=== PATIENT | female | born 1950 | race Caucasian/White ===

== ENCOUNTER 2016-08-05 07:48 | Emergency (ER) | payer MEDICARE ==
[~2016-08-05] VITALS: Ht 154.9 cm; Wt 63.5 kg
[~2016-08-05 07:48] MED LIST: ALBU2.5V13 NEB; ALEN70TA5 PO; CHOL500021 PO; CLON0.1T PO; DOCU-27 PO; LATA2.5D3 OP; LISI-338 PO; MECL25TA3 PO; NAPR500T3 PO; OMEP40CA5 PO; OXYC-323 PO; SIMV10TA3 PO; TRAM50TA PO; VERA240C2 PO
--- NOTE | 2016-08-05 07:54 | PHYS DOC ---
Past Medical History Past Medical History: COPD, Hypertension Past Surgical History: Hysterectomy, Tonsillectomy, Tubal ligation Alcohol Use: None Drug Use: None Adult General Chief Complaint Chief Complaint: ABDOMINAL PAIN HPI HPI Patient is a 66 year old female who presents with abdominal pain. She states this feels like her diverticulitis is flared up in the past. She states it hurts on the epigastric area and down the left side in his crampy in nature. It started around 2 AM this morning he woke her up. She had 1 loose stool with small amount of bright red blood in it. She denies any chest pain shortness of breath fevers chills nausea or vomiting. Review of Systems Review of Systems Constitutional: Denies fever or chills [] Eyes: Denies change in visual acuity, redness, or eye pain [] HENT: Denies nasal congestion or sore throat [] Respiratory: Denies cough or shortness of breath [] Cardiovascular: No additional information not addressed in HPI [] GI: Complains of abdominal pain and blood in her stool, denies any nausea vomiting : Denies dysuria or hematuria [] Musculoskeletal: Denies back pain or joint pain [] Integument: Denies rash or skin lesions [] Neurologic: Denies headache, focal weakness or sensory changes [] Endocrine: Denies polyuria or polydipsia [] Current Medications Current Medications Current Medications Medications (Trade) Dose Ordered Sig/Anais Start Time Stop Time Status Last Admin Dose Admin Ciprofloxacin Lactate 200 ml @ 200 mls/hr ONCE ONCE 08/05/16 10:38 08/05/16 11:37 DC 08/05/16 10:53 200 MLS/HR Fentanyl Citrate (Fentanyl 2ml Vial) 50 mcg PRN Q15MIN PRN 08/05/16 08:30 08/05/16 12:10 DC 08/05/16 09:40 50 MCG Info 1 each 1 each PRN DAILY PRN 08/05/16 09:00 08/05/16 12:10 DC Iohexol (Omnipaque 300 Mg/ml) 75 ml 1X ONCE 08/05/16 09:00 08/05/16 09:01 DC 08/05/16 09:04 75 ML Metronidazole (FLAGYL 500Mmg PREMIX) 100 ml @ 100 mls/hr ONCE ONCE 08/05/16 10:45 08/05/16 11:44 DC 08/05/16 10:53 100 MLS/HR Morphine Sulfate 2 mg 2 mg PRN Q15MIN PRN 08/05/16 08:15 08/05/16 08:21 DC Ondansetron HCl (Zofran) 4 mg 1X ONCE 08/05/16 08:15 08/05/16 08:17 DC 08/05/16 08:33 4 MG Sodium Chloride (Iv Sodium Chloride 0.9% 1000ml Bag) 1,000 ml @ 1,000 mls/hr Q1H 08/05/16 08:13 08/05/16 09:12 DC 08/05/16 08:32 1,000 MLS/HR Allergies Allergies Allergies Coded Allergies Type Severity Reaction Last Updated Verified No Known Drug Allergies 03/17/16 No Physical Exam Physical Exam Constitutional: Well developed, well nourished, no acute distress, non-toxic appearance. [] HENT: Normocephalic, atraumatic, bilateral external ears normal, oropharynx moist, no oral exudates, nose normal. [] Eyes: PERRLA, EOMI, conjunctiva normal, no discharge. [] Neck: Normal range of motion, no tenderness, supple, no stridor. [] Cardiovascular:Heart rate regular rhythm, no murmur [] Lungs & Thorax: Bilateral breath sounds clear to auscultation [] Abdomen: Bowel sounds normal, soft, nontender palpation the epigastric area and on the left quadrants, no masses, no pulsatile masses, rectal exam shows normal tone, external hemorrhoids noted, small amount of stool in the vault, trace amount of red blood. [] Skin: Warm, dry, no erythema, no rash. [] Back: No tenderness, no CVA tenderness. [] Extremities: No tenderness, no cyanosis, no clubbing, ROM intact, no edema. [] Neurologic: Alert and oriented X 3, normal motor function, normal sensory function, no focal deficits noted. [] Psychologic: Affect normal, judgement normal, mood normal. [] Current Patient Data Vital Signs Vital Signs Date Time Temp Pulse Resp B/P Pulse Ox O2 Delivery O2 Flow Rate FiO2 08/05/16 08:01 97.8 104 18 132/74 94 Room Air 97.8 Lab Values Laboratory Tests Test 08/05/16 08:20 08/05/16 08:37 White Blood Count 12.2x10^3/uL (4.0-11.0) H Red Blood Count 4.55x10^6/uL (3.50-5.40) Hemoglobin 14.6g/dL (12.0-15.5) Hematocrit 43.9% (36.0-47.0) Mean Corpuscular Volume 96fL (79-100) Mean Corpuscular Hemoglobin 32pg (25-35) Mean Corpuscular Hemoglobin Concent 33g/dL (31-37) Red Cell Distribution Width 12.9% (11.5-14.5) Platelet Count 235x10^3/uL (140-400) Neutrophils (%) (Auto) 71% (31-73) Lymphocytes (%) (Auto) 20% (24-48) L Monocytes (%) (Auto) 8% (0-9) Eosinophils (%) (Auto) 1% (0-3) Basophils (%) (Auto) 1% (0-3) Neutrophils # (Auto) 8.7x10^3uL (1.8-7.7) H Lymphocytes # (Auto) 2.4x10^3/uL (1.0-4.8) Monocytes # (Auto) 0.9x10^3/uL (0.0-1.1) Eosinophils # (Auto) 0.1x10^3/uL (0.0-0.7) Basophils # (Auto) 0.1x10^3/uL (0.0-0.2) Prothrombin Time 14.0SEC (11.7-14.0) Prothrombin Time INR 1.2 (0.8-1.1) H PTT 28SEC (24-38) Stool Occult Blood Positive (NEG) Sodium Level 138mmol/L (136-145) Potassium Level 4.2mmol/L (3.5-5.1) Chloride Level 103mmol/L (98-107) Carbon Dioxide Level 28mmol/L (21-32) Anion Gap 7 (6-14) Blood Urea Nitrogen 16mg/dL (7-20) Creatinine 0.9mg/dL (0.6-1.0) Estimated GFR (Cockcroft-Gault) 63.0 BUN/Creatinine Ratio 18 (6-20) Glucose Level 157mg/dL (70-99) H Calcium Level 10.1mg/dL (8.5-10.1) Total Bilirubin 0.6mg/dL (0.2-1.0) Aspartate Amino Transferase (AST) 15U/L (15-37) Alanine Aminotransferase (ALT) 22U/L (14-59) Alkaline Phosphatase 83U/L (46-116) Total Protein 7.1g/dL (6.4-8.2) Albumin 3.3g/dL (3.4-5.0) L Albumin/Globulin Ratio 0.9 (1.0-1.7) L Lipase 57U/L (73-393) L Urine Collection Type Unknown Urine Color Evangelina Urine Clarity Clear Urine pH 5.5 Urine Specific [place] >=1.030 Urine Protein Negativemg/dL (NEG-TRACE) Urine Glucose (UA) Negativemg/dL (NEG) Urine Ketones (Stick) Tracemg/dL (NEG) Urine Blood Moderate (NEG) Urine Nitrite Negative (NEG) Urine Bilirubin Small (NEG) Urine Urobilinogen Dipstick 1.0mg/dL (0.2 mg/dL) Urine Leukocyte Esterase Small (NEG) Urine RBC 3-5/HPF (0-2) Urine WBC Occ/HPF (0-4) Urine Squamous Epithelial Cells Mod/LPF Urine Bacteria 0/HPF (0-FEW) Urine Mucus Mod/LPF Laboratory Tests 08/05/16 08:20 Laboratory Tests 08/05/16 08:20 EKG EKG [] Radiology/Procedures Radiology/Procedures IMAGING REPORT Signed PATIENT: MIGDALIA GROSS ACCOUNT: [id number] : 1950 LOCATION: ER AGE: 66 SEX: F EXAM STATUS: REG ER ORD. PHYSICIAN: EDVIN CARTY MD REASON: abdominal pain PROCEDURE: ABD PELV W/ IV CONTRAST ONLY CT abdomen and pelvis with IV contrast History: Abdominal pain beginning this morning. Comparison: CT abdomen pelvis 06/12/2007. Technique: After administration of intravenous contrast, 75 mL Omnipaque 300, helical CT of the abdomen and pelvis was performed from the lung bases through the ischial tuberosities. Axial, sagittal, and coronal reconstructions were obtained. One or more of the following individualized dose reduction techniques were utilized for the study: Automated exposure control Adjustment of mA and/or kV according to patient's size Use of iterative reconstruction technique. Findings: Liver demonstrates focal fatty infiltration along the fissure for the ligamentum teres. Nonspecific calcification is seen in the spleen. Spleen is otherwise unremarkable. Pancreas, gallbladder, and bilateral adrenal glands are unremarkable. Bilateral kidneys enhance symmetrically. No bowel obstruction is seen. Urinary bladder is unremarkable. Uterus is absent. Appendix is without evidence of inflammation. There is evidence of bowel wall thickening and adjacent fat stranding of the distal 2/3 of the transverse colon, splenic flexure, and proximal 1/3 of the descending colon. Findings are compatible with nonspecific colitis. The distal colon, primarily the sigmoid colon, demonstrates colonic diverticulosis. No sigmoid diverticulitis is seen. No free air or free fluid is appreciated. The proximal aspects of the mesenteric arteries enhance appropriately. Mild dextroconvex curvature of the lumbar spine is seen. Impression: 1. Changes of nonspecific colitis can be seen involving the distal transverse colon, splenic flexure, and proximal descending colon. Possible etiologies include focal inflammatory or infectious colitis. Given the distribution, watershed ischemia could be additional possibility. DICTATED and SIGNED BY: LARS KABA MD DATE: 08/05/16 0954 CC: EDVIN CARTY MD; LARS CHAIDEZ MD ~ Impressions: Diverticulitis Course & Med Decision Making Course & Med Decision Making Pertinent Labs and Imaging studies reviewed. (See chart for details) Patient presents with abdominal discomfort is similar to her previous colitis. CT scan confirms colitis. I've offered her admission however she does not want to be admitted to the hospital and is requesting be discharged home. I spoke with Dr. Mills who is on-call for Dr. Chaidez, who is agreeable with the plan of discharged home and follow-up in the clinic. She's been discharged with 7 days of Cipro 500 mg twice a day and Flagyl 500 mg twice a day for 7 days. She is to return to the ER for worsening pain, bleeding, or other concerns. Dragon Disclaimer Dragon Disclaimer This electronic medical record was generated, in whole or in part, using a voice recognition dictation system. Departure Departure Impression: Primary Impression: Diverticulitis Disposition: HOME, SELF-CARE Condition: STABLE Referrals: LARS CHAIDEZ MD (PCP) Scripts Metronidazole (Flagyl)500 Mg Tablet1 Tab PO BID #14 TAB Prov:EDVIN CARTY MD 08/05/16 Ciprofloxacin Hcl (Cipro)500 Mg [id number] Mg PO BID 7 Days Ref 0 Prov:EDVIN CARTY MD 08/05/16 EDVIN CARTY MD Aug 05, 2016 07:53
[2016-08-05] MEDS ORDERED: IV NORMAL SALINE 1000ML BAG 1,000 ML IV SCH (08:13)
[2016-08-05] MEDS ORDERED: ONDANSETRON PF 4 MG/2 ML VIAL. IV ONE (08:15)
[2016-08-05] MEDS ORDERED: MORPHINE SULFATE 2 MG/ML DISP.SYRIN. IV/SQ PRN (08:15)
[2016-08-05 08:29] LABS: BASO # 0.1 x10^3/uL (0.0-0.2); BASO % 1 % (0-3); EOS % 1 % (0-3); HEMATOCRIT 43.9 % (36.0-47.0); HEMOGLOBIN 14.6 g/dL (12.0-15.5); LYMPH # 2.4 x10^3/uL (1.0-4.8); LYMPH % 20 % (24-48); MEAN CORPUSCULAR HEMOGLOBIN 32 pg (25-35); MEAN CORPUSCULAR HGB CONC 33 g/dL (31-37); MEAN CORPUSCULAR VOLUME 96 fL (79-100); MONO % 8 % (0-9); NEUT % 71 % (31-73); PLATELET COUNT 235 x10^3/uL (140-400); RED BLOOD COUNT 4.55 x10^6/uL (3.50-5.40); RED CELL DISTRIBUTION WIDTH 12.9 % (11.5-14.5); WHITE BLOOD COUNT 12.2 x10^3/uL (4.0-11.0)
[2016-08-05] MEDS: FENTANYL PF 100 MCG/2 ML VIAL. IV PRN ×2 (08:33→09:40)
[2016-08-05 08:35] LABS: CALCIUM 10.1 mg/dL (8.5-10.1); CREATININE 0.9 mg/dL (0.6-1.0); POTASSIUM 4.2 mmol/L (3.5-5.1)
[2016-08-05 08:39] LABS: INR 1.2 (0.8-1.1)
[2016-08-05 08:41] LABS: ALBUMIN 3.3 g/dL (3.4-5.0); ALBUMIN/GLOBULIN RATIO 0.9 (1.0-1.7); TOTAL BILIRUBIN 0.6 mg/dL (0.2-1.0); TOTAL PROTEIN 7.1 g/dL (6.4-8.2)
[2016-08-05 08:47] LABS: NEG OBC FOB NEG; POS OBC FOB POS
[2016-08-05 08:50] LABS: BILIRUBIN,URINE SMALL (NEG); GLUCOSE,URINE NEGATIVE (NEG); NITRITE,URINE NEGATIVE (NEG); PH,URINE 5.5; PROTEIN,URINE NEGATIVE (NEG-TRACE)
[2016-08-05 08:57] LABS: BACTERIA,URINE 0 /HPF (0-FEW); SQUAMOUS EPITHELIAL CELL,UR MOD /LPF; WBC,URINE OCC /HPF (0-4)
[2016-08-05] MEDS ORDERED: IOHEXOL 300 MG/ML 75 ML VIAL IV ONE (09:00)
[2016-08-05] MEDS ORDERED: CONTRAST GIVEN MC PRN (09:00)
--- NOTE | 2016-08-05 10:06 | RAD ---
CT abdomen and pelvis with IV contrast History: Abdominal pain beginning this morning. Comparison: CT abdomen pelvis 06/12/2007. Technique: After administration of intravenous contrast, 75 mL Omnipaque 300, helical CT of the abdomen and pelvis was performed from the lung bases through the ischial tuberosities. Axial, sagittal, and coronal reconstructions were obtained. One or more of the following individualized dose reduction techniques were utilized for the study: Automated exposure control Adjustment of mA and/or kV according to patient's size Use of iterative reconstruction technique. Findings: Liver demonstrates focal fatty infiltration along the fissure for the ligamentum teres. Nonspecific calcification is seen in the spleen. Spleen is otherwise unremarkable. Pancreas, gallbladder, and bilateral adrenal glands are unremarkable. Bilateral kidneys enhance symmetrically. No bowel obstruction is seen. Urinary bladder is unremarkable. Uterus is absent. Appendix is without evidence of inflammation. There is evidence of bowel wall thickening and adjacent fat stranding of the distal 2/3 of the transverse colon, splenic flexure, and proximal 1/3 of the descending colon. Findings are compatible with nonspecific colitis. The distal colon, primarily the sigmoid colon, demonstrates colonic diverticulosis. No sigmoid diverticulitis is seen. No free air or free fluid is appreciated. The proximal aspects of the mesenteric arteries enhance appropriately. Mild dextroconvex curvature of the lumbar spine is seen. Impression: 1. Changes of nonspecific colitis can be seen involving the distal transverse colon, splenic flexure, and proximal descending colon. Possible etiologies include focal inflammatory or infectious colitis. Given the distribution, watershed ischemia could be additional possibility.
[2016-08-05] MEDS ORDERED: CIPROFLOXACIN 400MG PREMIX 200 ML IV ONE (10:38)
[2016-08-05] MEDS ORDERED: METRONIDAZOLE 500mg PREMIX 100 ML IV ONE (10:45)
[2016-08-05] MEDS ORDERED: CIPR250T30 PO (11:10)
[2016-08-05] MEDS ORDERED: METR500T PO ×2 (11:10→11:25)
[2016-08-05] MEDS ORDERED: CIPR500T94 PO (11:24)
[2016-08-05 11:55] VITALS: BP 108/58
--- NOTE | 2016-08-05 11:57 | ACF ---
Admission Forms Criteria Admission Criteria Met?: Yes QUITA SAENZ Aug 05, 2016 11:57
[2016-08-05] MEDS ORDERED: CIPROFLOXACIN 400MG PREMIX 200 ML IV SCH (21:00)
[2016-08-05] MEDS ORDERED: METRONIDAZOLE 500mg PREMIX 100 ML IV SCH (21:00)
== END 2016-08-05 12:10 | disposition home or self-care (01) ==
LOC: ER 07:48
DX: K57.92 Diverticulitis of intestine, part unspecified, without perforation or abscess without bleeding (principal); J44.9 Chronic obstructive pulmonary disease, unspecified; I10 Essential (primary) hypertension; Z90.710 Acquired absence of both cervix and uterus; Z98.51 Tubal ligation status
CPT/HCPCS: 36415; 74177; 80053; 81001; 82274; 83690; 85027; 85610; 85730; 87086; 96361; 96365; 96368; 96375; 96376; 99285; J0744; J2405; J3010; J3490; J7030; Q9967

== ENCOUNTER → 2017-01-10 | Outpatient (CLI) | payer MEDICARE ==
[~2017-01-10] MED LIST changes: -ALBU2.5V13 NEB; +ALBU2.5V14 NEB; +CIPR250T30 PO; +CIPR500T94 PO; +DOCU-109 PO; -DOCU-27 PO; +METR500T PO
--- NOTE | 2017-01-10 08:50 | RAD ---
Indication hypercalcemia. Grayscale imaging targeted to the thyroid was performed. The right lobe of the thyroid measures 1.1 x 4.5 x 1.9 cm. Within the right lobe of the thyroid there is a hypoechoic 0.8 mm mass. No definite parathyroid mass is seen. The isthmus appears unremarkable. The left lobe of the thyroid measures 3.4 x 1.5 x 1.5 cm. There are hypoechoic masses within the left lobe the largest measuring 9 mm. No definite mass outside the thyroid to suggest a parathyroid adenoma is seen. IMPRESSION: No definite parathyroid mass. Subcentimeter masses in both lobes of the thyroid
--- NOTE | 2017-01-10 12:49 | RAD ---
Examination: Nuclear medicine parathyroid scan History: History of hypercalcemia Comparison: 12/25/2012 Technique: 21 mCi of technetium 99m sestamibi was administered IV. Anterior, NETTIE, ESPINAL images. Performed immediately and with a 3 hour delay. Findings: There is homogeneous radiotracer distribution within the thyroid gland on the immediate images. On the delayed images, there is a focal radiotracer uptake identified in the inferior left thyroid region. Impression: Focal radiotracer uptake/retention identified projecting in the region of the inferior left thyroid lobe, suspicious for parathyroid adenoma.
== END | disposition home or self-care (01) ==
LOC: NM 07:56
PROVIDERS: ATTEND Surgery
DX: E83.52 Hypercalcemia (principal); J44.9 Chronic obstructive pulmonary disease, unspecified; I10 Essential (primary) hypertension; F17.200 Nicotine dependence, unspecified, uncomplicated
CPT/HCPCS: 76536; 78070; 96374; A9500

== ENCOUNTER → 2017-01-18 | Outpatient (CLI) | payer MEDICARE ==
--- NOTE | 2017-01-18 10:56 | RAD ---
MRI of the brain without contrast 01/18/2017 Clinical History: Worsening tremors particularly involving the right hand with weakness. Technique: Unenhanced T1-weighted sagittal and axial, T2-weighted and FLAIR axial and coronal, and gradient echo and diffusion-weighted axial images of the brain were obtained. Findings: No previous imaging studies are available for comparison. There is mild generalized parenchymal atrophy. Patchy and a few small scattered areas of increased signal intensity are seen within the periventricular and subcortical white matter of both cerebral hemispheres on the FLAIR and T2-weighted images consistent with areas of minimal small vessel ischemic disease. 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 These measure 7 mm to 1 cm in greatest diameter. No acute parenchymal abnormality is seen. No extra-axial fluid collection is seen. There is no MRI evidence of acute ischemia/infarction. Mild to moderate mucosal thickening is seen involving both maxillary sinuses, right greater than left. Mild mucosal thickening is seen involving scattered ethmoid air cells bilaterally. There is a small right mastoid effusion. Normal flow voids are seen within the major vascular structures surrounding the brain parenchyma. Impression: No acute parenchymal abnormality is seen. Electronically signed by: Alexis Leggett MD (01/18/2017 10:53 AM)
== END | disposition home or self-care (01) ==
LOC: MRI 08:13
PROVIDERS: ATTEND Psychiatry & Neurology Neurology with Special Qualifications in Child Neurology
DX: G25.0 Essential tremor (principal)
CPT/HCPCS: 70551

== ENCOUNTER → 2017-02-01 | Outpatient (CLI) | payer MEDICARE ==
[~2017-02-01] MED LIST changes: +REGADENOSON 0.4 MG/5 ML DISP.SYRIN. IV ONE
--- NOTE | 2017-02-01 16:55 | RAD ---
APPROVED REPORT Test Type: Pharmacological Stress Nurse/Tech: Mechelle Brewster R.N. Test Indications: chest tightness Cardiac History: murmur, copd, smoker, htn Medications: see ehr Medical History: see ehr Resting ECG: sr Resting Heart Rate: 78 bpm Resting Blood Pressure: 139/84mmHg Pretest Chest Pain: No chest pain Nurse/Tech Notes lungs coarse, cough, heart tones regular Consent: The procedure was explained to the patient in lay terms. Informed consent was witnessed. Paul eout was entered into [employer]. History and Stress Test performed by Mechelle Brewster R.N. Pharm. Details Pharmacologic stress testing was performed using 0.4mg per 5ml of regadenoson given intravenously ove r 7-10 seconds. Stress Symptoms pt c/o chest tightness, no pain, states tightness resolved POST EXERCISE Reason for Termination: Infusion complete Target HR: No Max HR: 94 bpm Max Blood Pressure: 151/79mmHg Chest Pain: Yes. see above Arrhythmia: No. ST Change: No. INTERPRETATION Stress EKG Conclusion: No evidence of stress induced EKG changes. Imaging Protocol IMAGE PROTOCOL: Rest Tc-99m/stress Tc-99m 1 day Rest: Stress: Viability: Radiopharm.Tc99m XxmcbvugwMb70l Sestamibi Ussg42eIz 33mCi Duration 15min. 10min. Img Date 02/01/2017 02/01/2017 Inj-Img Ofvz07pob. 60min. Rest Admin Site:IV - Right AntecubitalAdministrator:Samina Shin, RT (R)(N) Stress Admin Site: IV - Right AntecubitalAdministrator: SAURABH UrrutiaTCStefanie, ARRT (R)(N) STRESS DATA End Diast. Vol.63.0mlAv. Heart Rate84.0bpm End Syst. Vol.10.0mlCO Index BSA0.0L/min Myocardial Uald117.0gEject. Afugravu73.0% Stress Rates Pk. Fill Rate2.80EDV/secLVtime Pk. Fill 126.25msec Pk. Empty Rate3.89ESV/secLVtime Pk. Nzxuy795.70msec 07/27 Pk. Fill1.84EDV/sec Stress Scores Regional WT0.00Summed WT0.00 Regional WM0.00Summed WM1.00 The rest and stress images show normal perfusion, normal contraction and thickening. LV Perf. Quant 17 Seg. SSS0.00 17 Seg. SRS2.00 17 Seg. SDS0.00 Stress Defect Extent (% LAD)0.00Rest Defect Extent (% LAD)6.30Rev. Defect Extent (% LAD)0.00 Stress Defect Extent (% LCX) 0.00Rest Defect Extent (% LCX)0.00Rev. Defect Extent (% LCX)0.00 Stress Defect Extent (% RCA)0.00Rest Defect Extent (% RCA)0.00Rev. Defect Extent (% RCA)0.00 Stress Defect Extent (% JESUS)0.00Rest Defect Extent (% JESUS)2.20Rev. Defect Extent (% JESUS)0.00 Other Information Quality:Fair Risk Assessment: Low Risk Conclusion 1. No evidence of stress induced EKG changes. 2. Normal perfusion at stress/rest. 3. Low risk study. EF > 70%.
--- NOTE | 2017-02-01 17:28 | CARD ---
APPROVED REPORT EXAM: Two-dimensional and M-mode echocardiogram with Doppler and color Doppler. Other Information Quality : Average Rhythm : NSR INDICATION Chest pressure 2D DIMENSIONS RVDd2.7 (2.9-3.5cm)Left Atrium(2D)3.3 (1.6-4.0cm) IVSd1.0 (0.7-1.1cm)Aortic Root(2D)2.7 (2.0-3.7cm) LVDd4.4 (3.9-5.9cm)LVOT Diameter2.0 (1.8-2.4cm) PWd1.0 (0.7-1.1cm)LVDs3.1 (2.5-4.0cm) FS (%) 29.8 %SV50.1 ml LVEF(%)57.1 (>50%) Aortic Valve AoV Peak Deny.121.4cm/sAoV VTI22.0cm AO Peak GR.5.9mmHgLVOT Peak Deny.90.3cm/s LVOT VTI 16.50cmAO Mean GR.3mmHg SAMPSON (VMAX)2.13op3MHX (VTI)2.46cm2 Mitral Valve MV E Cwjyfikv23.5cm/sMV DECEL [id number] MV A Yjrihzhy18.8cm/sMV E Mean Gr.2mmHg MV PPD86vqX/A Ratio0.7 MV A Zqhfoqgq100ynGLH (PHT)3.63cm2 TDI E/Lateral E'8.4E/Medial E'9.1 Pulmonary Valve PV Peak Vccwxrdi32.1cm/sPV Peak Grad.4mmHg RVOT VTI15.8cm Tricuspid Valve TR P. Ugynechz858aw/sRAP CTEHDQOQ6afAv TR Peak Gr.21gxMfWZFT41nuEj Pulmonary Vein S1 Jicsrwtt22.4cm/sD2 Rtsmnljc65.2cm/s LEFT VENTRICLE The left ventricle is normal size. There is normal left ventricular wall thickness. Left ventricle sy stolic function is normal. The Ejection Fraction is 55-60%. There is normal LV segmental wall motion. Tissue Doppler imaging reveals mild left ventricular diastolic dysfunction. Transmitral Doppler flow pattern is Grade I-abnormal relaxation pattern. There is no ventricular septal defect visualized. RIGHT VENTRICLE The right ventricle is normal size. The right ventricular systolic function is normal. ATRIA The left atrium size is normal. The right atrium size is normal. The mid interatrial septum is thin a nd mobile with no evidence for an atrial septal defect with color doppler. AORTIC VALVE The aortic valve is normal in structure and function. The aortic valve is trileaflet. Doppler and Col or Flow revealed no significant aortic regurgitation. There is no significant aortic valvular stenosi s. MITRAL VALVE The mitral valve is normal in structure and function. There is no mitral valve stenosis. Doppler and Color Flow revealed no mitral valve regurgitation noted. TRICUSPID VALVE The tricuspid valve is normal in structure and function. Doppler and Color Flow revealed trace tricus pid regurgitation. The PA pressure was estimated at 15 mmHg. There is no tricuspid valve stenosis. PULMONIC VALVE The pulmonic valve is not well visualized. Doppler and Color Flow revealed no pulmonic valvular regur gitation. There is no pulmonic valvular stenosis. GREAT VESSELS The aortic root is normal in size. The ascending aorta is normal in size. Normal pulmonary venous lia w (Doppler). The IVC is normal in size and collapses >50% with inspiration. PERICARDIAL EFFUSION There is no evidence of significant pericardial effusion. Critical Notification Critical Value: No <Conclusion> The left ventricle is normal size. Left ventricle systolic function is normal. The Ejection Fraction is 55-60%. There is no significant aortic valvular stenosis. Doppler and Color Flow revealed no significant aortic regurgitation. Doppler and Color Flow revealed no mitral valve regurgitation noted. Doppler and Color Flow revealed trace tricuspid regurgitation. The PA pressure was estimated at 15 mmHg. There is no evidence of significant pericardial effusion.
== END | disposition home or self-care (01) ==
LOC: ECHO 08:24
PROVIDERS: ATTEND Internal Medicine Cardiovascular Disease
DX: R01.1 Cardiac murmur, unspecified (principal); I07.1 Rheumatic tricuspid insufficiency; R07.89 Other chest pain
CPT/HCPCS: 78452; 93017; 93306; 96374; 96375; 96376; A9500; J2785

== ENCOUNTER → 2017-05-11 | Outpatient (CLI) | payer MEDICARE ==
[~2017-05-11] MED LIST changes: -NAPR500T3 PO; +NAPR500T4 PO; -REGADENOSON 0.4 MG/5 ML DISP.SYRIN. IV ONE
--- NOTE | 2017-05-11 11:00 | RAD ---
Indication shortness of breath. Cough for 4 days. Frontal and lateral views of the chest were obtained. Comparison is made to an examination over 13 years earlier. Note is made of multiple CT examinations of the chest the most recent being 10/31/2014. The heart and pulmonary vessels appear normal. There is a nodule in the left lower lobe which, on plain film, does not appear changed appreciably when correlating with a CT examination 11/10/2014. There is some volume loss at the lung bases likely reflecting atelectasis. A definite consolidated pneumonia is not seen. Significant pleural fluid is not present and there is no pneumothorax. IMPRESSION: No definite acute finding in the chest. Volume loss at the lung bases likely reflecting atelectasis. Nodule in the left lung probably not changed significantly when compared to a study 10/31/2014
== END | disposition home or self-care (01) ==
LOC: RAD 09:54
PROVIDERS: ATTEND Internal Medicine Critical Care Medicine
DX: R05 Cough (principal); R06.02 Shortness of breath
CPT/HCPCS: 71020

== ENCOUNTER → 2017-06-13 | Outpatient (CLI) | payer MEDICARE ==
--- NOTE | 2017-06-13 11:04 | RAD ---
DATE: 06/13/2017. EXAM: DIGITAL SCREEN BILAT W/CAD. HISTORY: Routine mammographic screening. COMPARISON: 05/24/2016. This study was interpreted with the benefit of Computerized Aided Detection (CAD). FINDINGS: The breast parenchyma shows scattered fibroglandular densities. Breast parenchyma level B.. There are no suspicious masses, microcalcifications or architectural distortion. Scattered calcifications are benign. Small nodules superolateral on the right are consistent with benign intraparenchymal lymph nodes and are stable. BI-RADS CATEGORY: 2 BENIGN FINDING(S). RECOMMENDED FOLLOW-UP: 12M 12 MONTH FOLLOW-UP. PQRS compliance statement: Patient information was entered into a reminder system with a target due date 06/13/2018 for the next mammogram. Mammography is a sensitive method for finding small breast cancers, but it does not detect them all and is not a substitute for careful clinical examination. A negative mammogram does not negate a clinically suspicious finding and should not result in delay in biopsying a clinically suspicious abnormality. "Our facility is accredited by the [employer] Mammography Program."
== END | disposition home or self-care (01) ==
LOC: MAMMO 09:44
PROVIDERS: ATTEND Family Medicine
DX: Z12.31 Encounter for screening mammogram for malignant neoplasm of breast (principal)
CPT/HCPCS: G0202; 77067

== ENCOUNTER → 2018-07-04 | Outpatient (CLI) | payer MEDICARE, OTHER ==
[~2018-07-04] MED LIST changes: +NAPR-514 PO; -NAPR500T4 PO; -OXYC-323 PO; +OXYC1TAB15 PO
--- NOTE | 2018-07-04 15:23 | RAD ---
DATE: July 04, 2018 EXAM: MAMMO ROMAN SCREENING BILATERAL HISTORY: Screening study. COMPARISON: 2016 and 2017 This study was interpreted with the benefit of Computerized Aided Detection (CAD). 2-D digital mammographic views of both breasts were performed in the CC and MLO projections. 3-D digital tomosynthesis images of both breasts were performed in the CC and MLO projections and reviewed on a computer workstation. FINDINGS: Breast Density: SCATTERED The breast parenchyma shows scattered fibroglandular densities. Breast parenchyma level B.. There are no dominant suspicious masses, suspicious microcalcifications or evidence of architectural distortion. IMPRESSION: No mammographic indicators for malignancy. BI-RADS CATEGORY: 1 NEGATIVE RECOMMENDED FOLLOW-UP: 12M 12 MONTH FOLLOW-UP PQRS compliance statement: Patient information was entered into a reminder system with a target due date July 05, 2019 for the next mammogram. Mammography is a sensitive method for finding small breast cancers, but it does not detect them all and is not a substitute for careful clinical examination. A negative mammogram does not negate a clinically suspicious finding and should not result in delay in biopsying a clinically suspicious abnormality. "Our facility is accredited by the [employer]ammography [employer]." The patient's breast density may affect the ability of mammography to detect breast cancer. There are 4 categories of breast density, A, B, C and D. Breast density A means that most of the breast tissue is replaced with adipose tissue and therefore is not dense. Breast density B means that the breast tissue is mildly dense and scattered. Breast density C means that the breast tissue is heterogeneously dense. Breast density D means that the breast tissue is very dense. Breast densities especially C and D may decrease the sensitivity of mammography to detect breast cancer. Therefore, the patient may benefit from 3-D breast mammography (3D breast tomography) as a part of their screening mammogram. Insurance may or may not pay for this additional imaging. The patient's breast density based on today's mammogram is category B.
== END | disposition home or self-care (01) ==
LOC: MAMMO 13:41
PROVIDERS: ATTEND Family Medicine
DX: Z12.31 Encounter for screening mammogram for malignant neoplasm of breast (principal)
CPT/HCPCS: 77063; 77067

== ENCOUNTER → 2019-06-07 | Outpatient (CLI) | payer MEDICARE, OTHER ==
[~2019-06-07] MED LIST changes: -ALEN70TA5 PO; +ALEN70TA6 PO; +OMEP40CA45 PO; -OMEP40CA5 PO; +SIMV10TA15 PO; -SIMV10TA3 PO
--- NOTE | 2019-06-07 11:41 | KCIC ---
Upper GI HISTORY: Dysphasia. Reflux disease. PROCEDURE: Effervescent, thin barium and thick barium were administered during fluoroscopic evaluation. FINDINGS: Preliminary film demonstrates moderate retained stool in the colon and rectum. Mild markings in lung bases, appears similar as chest x-ray of September 14, likely fibrosis or scarring. Mild tertiary contractions in the esophagus. No fixed filling defect. Gastroesophageal reflux could not be elicited during the exam. No definite esophageal mucosal abnormality. Limited coating of the gastric mucosa. No fixed filling defect, ulceration or deformity is noted. Duodenal bulb appears within normal limits. There is prompt transit of contrast into the proximal small bowel loops, which appear grossly unremarkable as seen. Fluoroscopy time: 5 minutes 45 seconds 21 images were obtained. IMPRESSION: 1. Mild tertiary contractions in the esophagus. 2. No evidence of fixed lesion or deformity. 3. Gastroesophageal reflux could not be elicited during the exam. 4. Endoscopy could provide further evaluation. Electronically signed by: Song Nino MD (06/07/2019 11:39 AM) [facility]-[id number]
== END | disposition home or self-care (01) ==
LOC: KCIC 08:25
PROVIDERS: ATTEND Internal Medicine Gastroenterology
DX: K22.8 Other specified diseases of esophagus (principal); K59.09 Other constipation; K21.9 Gastro-esophageal reflux disease without esophagitis
CPT/HCPCS: 74241

== ENCOUNTER → 2019-07-05 | Outpatient (CLI) | payer MEDICARE, OTHER ==
--- NOTE | 2019-07-06 14:37 | RAD ---
DATE: 07/05/2019 EXAM: MAMMO ROMAN SCREENING BILATERAL HISTORY: Routine screening COMPARISON: 11/14/2014, 05/24/2016, 06/13/2017, 07/04/2018 mammographic exams This study was interpreted with the benefit of Computerized Aided Detection (CAD). Breast Density: SCATTERED The breast parenchyma shows scattered fibroglandular densities. Breast parenchyma level B. FINDINGS: Parenchymal distribution is stable. No suspicious calcifications, masses, or distortion in the interval. IMPRESSION: Small right upper-outer breast mass which may represent intramammary lymph node is stable. No suspicious calcifications, masses, or distortion in the interval. BI-RADS CATEGORY: 1 NEGATIVE RECOMMENDED FOLLOW-UP: 12M 12 MONTH FOLLOW-UP PQRS compliance statement: Patient information was entered into a reminder system with a target due date for the next mammogram. Mammography is a sensitive method for finding small breast cancers, but it does not detect them all and is not a substitute for careful clinical examination. A negative mammogram does not negate a clinically suspicious finding and should not result in delay in biopsying a clinically suspicious abnormality. "Our facility is accredited by the [employer] Mammography [employer]."
== END | disposition home or self-care (01) ==
LOC: MAMMO 09:48
PROVIDERS: ATTEND Family Medicine
DX: Z12.31 Encounter for screening mammogram for malignant neoplasm of breast (principal); N63.11 Unspecified lump in the right breast, upper outer quadrant
CPT/HCPCS: 77063; 77067

== ENCOUNTER → 2020-04-30 | Outpatient (CLI) | payer MEDICARE, OTHER ==
[~2020-04-30] MED LIST changes: +MECL-75 PO; -MECL25TA3 PO
--- NOTE | 2020-04-30 16:04 | RAD ---
CHEST PA LATERAL INDICATION: SOA . COMPARISON STUDY: 09/14/2018. FINDINGS: Lungs: Hyperexpanded lung volume. No pulmonary mass or consolidation. Calcified pulmonary granulomas. The tracheobronchial tree and hilar structures are normal. Pleura: No pleural effusion or pneumothorax. Heart and Mediastinum: The cardiomediastinal silhouette is normal. Atherosclerosis of the thoracic aorta. Bones and Soft Tissues: Degenerative changes of the spine. IMPRESSION: No focal airspace disease. Electronically signed by: Nicolas Mckeon MD (04/30/2020 4:00 PM) [id number]
== END ==
LOC: RAD 11:22
PROVIDERS: ATTEND Internal Medicine Critical Care Medicine
DX: R06.02 Shortness of breath (principal); E11.65 Type 2 diabetes mellitus with hyperglycemia; I70.0 Atherosclerosis of aorta
CPT/HCPCS: 71046

== ENCOUNTER → 2020-11-06 | Outpatient (CLI) | payer OTHER ==
[~2020-11-06] MED LIST changes: -ALEN70TA6 PO; +ALEN70TA71 PO; -LISI-338 PO; +LISI-517 PO
== END ==
LOC: LAB 09:13
PROVIDERS: ATTEND Internal Medicine Gastroenterology
DX: Z01.812 Encounter for preprocedural laboratory examination (principal); Z20.822 Contact with and (suspected) exposure to COVID-19; K63.5 Polyp of colon
CPT/HCPCS: U0003; U0005

== ENCOUNTER → 2020-11-07 | Day surgery (SDC) | payer OTHER ==
[~2020-11-07] MED LIST changes: +HYDROmorphone 2 MG/ML VIAL IVP PRN; +MORPHINE SULFATE 2 MG/ML VIAL. IVP PRN; +PROCHLORPERAZINE 10 MG/2 ML VIAL. IVP PRN; +PROPOFOL 10 MG/ML (20ML) VIAL. IV ONE; +fentaNYL PF VIAL 100 MCG/2 ML VIAL IVP PRN
[2020-11-07] MEDS: IV RINGERS,LACTATED 1000ML 1,000 ML IV SCH ×2 (09:08→09:09)
[2020-11-07 09:47] VITALS: BP 157/75
== END | disposition home or self-care (01) ==
LOC: ENDOS 08:24
PROVIDERS: ATTEND Internal Medicine Gastroenterology
DX: Z12.11 Encounter for screening for malignant neoplasm of colon (principal); K64.0 First degree hemorrhoids; K57.30 Diverticulosis of large intestine without perforation or abscess without bleeding; K21.9 Gastro-esophageal reflux disease without esophagitis; I10 Essential (primary) hypertension; E78.00 Pure hypercholesterolemia, unspecified; J44.9 Chronic obstructive pulmonary disease, unspecified; F41.9 Anxiety disorder, unspecified; F32.9 Major depressive disorder, single episode, unspecified; F17.210 Nicotine dependence, cigarettes, uncomplicated; Z86.010 Personal history of colon polyps; Z87.440 Personal history of urinary (tract) infections; Z98.51 Tubal ligation status; Z90.710 Acquired absence of both cervix and uterus; Z79.899 Other long term (current) drug therapy
CPT/HCPCS: G0105; J2704; 45378

== ENCOUNTER → 2021-03-04 | Outpatient (CLI) | payer OTHER ==
[2020-11-07 09:47] VITALS: BP 157/75
[~2021-03-04] MED LIST changes: -HYDROmorphone 2 MG/ML VIAL IVP PRN; -MORPHINE SULFATE 2 MG/ML VIAL. IVP PRN; -OMEP40CA45 PO; +OMEP40CA7 PO; -PROCHLORPERAZINE 10 MG/2 ML VIAL. IVP PRN; -PROPOFOL 10 MG/ML (20ML) VIAL. IV ONE; -fentaNYL PF VIAL 100 MCG/2 ML VIAL IVP PRN
--- NOTE | 2021-03-04 14:20 | RAD ---
EXAM: BILATERAL DIGITAL 3D SCREENING MAMMOGRAPHY. HISTORY: Routine mammographic screening. TECHNIQUE: Bilateral digital 3D and tomographic images were obtained in CC and MLO projections. Compu ter-aided detection was applied. COMPARISON: 07/05/2019. COMPOSITION: B. There are scattered areas of fibroglandular density. FINDINGS: There are no suspicious masses, microcalcifications or architectural distortion. The parenc hymal pattern is stable. Scattered calcifications are benign. BI-RADS CATEGORY 2: Benign. RECOMMENDATION: 1. Routine screening mammography in one year. If mammography demonstrates dense breast tissue (heterogenously dense or extremely dense, category C or D), which could hide abnormalities, and if other risk factors for breast cancer have been identifi ed, supplemental screening tests that may be suggested by the ordering physician may be of benefit. D ense breast tissue, in and of itself, is a relatively common condition. Therefore, this information i s not provided to cause undue concern, but rather to raise awareness and to promote discussion with t he referring physician regarding the presence of other risk factors, in addition to dense breast tiss ue. The results of this mammography examination is provided to the patient and referring physician. T he patient should contact their referring physician if any questions or concerns exist regarding this report. PQRS compliance statement - Patient information was entered into a reminder system with a target due date for the next mammogram. "Our facility is accredited by the [employer] Mammography Program." Electronically signed by: Ann-Marie Rivera MD (03/04/2021 2:18 PM) [id number]
== END ==
LOC: MAMMO 10:04
PROVIDERS: ATTEND Family Medicine
DX: Z12.31 Encounter for screening mammogram for malignant neoplasm of breast (principal)
CPT/HCPCS: 77063; 77067

== ENCOUNTER 2021-03-20 06:25 | Inpatient (IN) | payer OTHER ==
[~2021-03-20] VITALS: Ht 154.9 cm; Wt 65.3 kg
[2021-03-20] MEDS ORDERED: MORPHINE SULFATE 4 MG/ML INJ. IVP ONE ×2 (07:30→10:30)
[2021-03-20 07:34] LABS: BASO % 0 % (0-3); EOS % 0 % (0-3); HEMATOCRIT 43.9 % (36.0-47.0); LYMPH # 2.4 x10^3/uL (1.0-4.8); LYMPH % 16 % (24-48); MEAN CORPUSCULAR HEMOGLOBIN 32 pg (25-35); MEAN CORPUSCULAR HGB CONC 34 g/dL (31-37); MEAN CORPUSCULAR VOLUME 95 fL (79-100); MONO # 1.4 x10^3/uL (0.0-1.1); MONO % 9 % (0-9); NEUT # 11.5 x10^3/uL (1.8-7.7); NEUT % 75 % (31-73); PLATELET COUNT 279 x10^3/uL (140-400); RED BLOOD COUNT 4.64 x10^6/uL (3.50-5.40); RED CELL DISTRIBUTION WIDTH 13.3 % (11.5-14.5); WHITE BLOOD COUNT 15.4 x10^3/uL (4.0-11.0)
[2021-03-20 07:46] LABS: CALCIUM 11.2 mg/dL (8.5-10.1); CREATININE 1.2 mg/dL (0.6-1.0); GFR 44.7; POTASSIUM 3.9 mmol/L (3.5-5.1)
[2021-03-20 07:53] LABS: ALBUMIN 3.6 g/dL (3.4-5.0); ALBUMIN/GLOBULIN RATIO 1.1 (1.0-1.7); TOTAL BILIRUBIN 0.7 mg/dL (0.2-1.0); TOTAL PROTEIN 6.8 g/dL (6.4-8.2)
--- NOTE | 2021-03-20 08:03 | PHYS DOC ---
Past Medical History Past Medical History: COPD, High Cholesterol, Hypertension Additional Past Medical Histor: parkinsons Past Surgical History: No Surgical History Additional Past Surgical Histo: shoulder, hand, mesh implant Smoking Status: Former Smoker Alcohol Use: None Drug Use: None General Adult EDM: Chief Complaint: RECTAL BLEED HPI: HPI: Patient is a 70 year old female who presented to ER due to abdominal pain with rectal bleeding started at 3 AM this morning when she was using the toilet. Patient denies any nausea vomiting, no cough, no fever, no chest pain. Patient is not on any blood thinner besides a baby aspirin. Patient was fully vaccinated for COVID-19. Patient says she had this episode in the past and was diagnosed with diverticulitis. Review of Systems: Review of Systems: Constitutional: Denies fever or chills. [] Eyes: Denies change in visual acuity. [] HENT: Denies nasal congestion or sore throat. [] Respiratory: Denies cough or shortness of breath. [] Cardiovascular: Denies chest pain or edema. [] GI: Positive for abdominal pain with bloody stool. : Denies dysuria. [] Musculoskeletal: Denies back pain or joint pain. [] Integument: Denies rash. [] Neurologic: Denies headache, focal weakness or sensory changes. [] Endocrine: Denies polyuria or polydipsia. [] Lymphatic: Denies swollen glands. [] Psychiatric: Denies depression or anxiety. [] Heart Score: C/O Chest Pain: N/A Risk Factors: Risk Factors: DM, Current or recent (<one month) smoker, HTN, HLP, family history of CAD, obesity. Risk Scores: Score 0 - 3: 2.5% MACE over next 6 weeks - Discharge Home Score 4 - 6: 20.3% MACE over next 6 weeks - Admit for Clinical Observation Score 7 - 10: 72.7% MACE over next 6 weeks - Early Invasive Strategies Current Medications: Current Medications Medications (Trade) Dose Ordered Sig/Anais Start Time Stop Time Status Last Admin Dose Admin Morphine Sulfate (Morphine Sulfate) 4 mg 1X ONCE 03/20/21 07:30 03/20/21 07:31 DC 03/20/21 07:40 4 MG Allergies: Allergies: Allergies Coded Allergies Type Severity Reaction Last Updated Verified No Known Drug Allergies 11/07/20 No Physical Exam: PE: Constitutional: Well developed, well nourished, no acute distress, non-toxic appearance. [] HENT: Normocephalic, atraumatic, bilateral external ears normal, oropharynx moist, no oral exudates, nose normal. [] Eyes: PERRLA, EOMI, conjunctiva normal, no discharge. [] Neck: Normal range of motion, no tenderness, supple, no stridor. [] Cardiovascular:Heart rate regular rhythm, no murmur [] Lungs & Thorax: Bilateral breath sounds clear to auscultation [] Abdomen: Bowel sounds normal, soft, there is tenderness to palpation in left lower quadrant abdominal area , no masses, no pulsatile masses. RECTAL EXAM: GROSS BLOOD PRESENT ON FINGER TIP, NO ACTIVE BLEEDING NOTED EXTERNALLY. Skin: Warm, dry, no erythema, no rash. [] Back: No tenderness, no CVA tenderness. [] Extremities: No tenderness, no cyanosis, no clubbing, ROM intact, no edema. [] Neurologic: Alert and oriented X 3, normal motor function, normal sensory function, no focal deficits noted. [] Psychologic: Affect normal, judgement normal, mood normal. [] Current Patient Data: Labs: Laboratory Tests Test 03/20/21 07:00 Sodium Level 137 mmol/L (136-145) Potassium Level 3.9 mmol/L (3.5-5.1) Chloride Level 102 mmol/L (98-107) Carbon Dioxide Level 28 mmol/L (21-32) Anion Gap 7 (6-14) Blood Urea Nitrogen 19 mg/dL (7-20) Creatinine 1.2 mg/dL (0.6-1.0) H Estimated GFR (Cockcroft-Gault) 44.7 BUN/Creatinine Ratio 16 (6-20) Glucose Level 120 mg/dL (70-99) H Calcium Level 11.2 mg/dL (8.5-10.1) H Magnesium Level 2.0 mg/dL (1.8-2.4) Total Bilirubin 0.7 mg/dL (0.2-1.0) Aspartate Amino Transferase (AST) 19 U/L (15-37) Alanine Aminotransferase (ALT) 23 U/L (14-59) Alkaline Phosphatase 108 U/L (46-116) Total Protein 6.8 g/dL (6.4-8.2) Albumin 3.6 g/dL (3.4-5.0) Albumin/Globulin Ratio 1.1 (1.0-1.7) Laboratory Tests 03/20/21 07:00 Vital Signs: Vital Signs Date Time Temp Pulse Resp B/P (MAP) Pulse Ox O2 Delivery O2 Flow Rate FiO2 03/20/21 07:40 20 100 Nasal Cannula 2.0 03/20/21 06:52 98.2 113 204/99 98.2 EKG: EKG: [] Radiology/Procedures: Radiology/Procedures: [][facility] [address] [place] [address] IMAGING REPORT Signed PATIENT: MIGDALIA GROSS ACCOUNT: [id number] : 1950 LOCATION: ER AGE: 70 SEX: F EXAM STATUS: REG ER ORD. PHYSICIAN: JACKIE HAGEN DO REASON: LLQ ABDOMINAL PAIN, RECTAL BLEEDING PROCEDURE: CT ABDOMEN PELVIS WO CONTRAST CT ABDOMEN+PELVIS WO pericolonic fat stranding at the splenic flexure. History: Left lower quadrant abdominal pain, rectal bleeding. Comparison: CT abdomen pelvis 08/05/2016 Technique: CT of the abdomen and pelvis without contrast Findings: Atelectasis and a few calcified granulomas bases. Trace pericardial fluid. No pleural effusion. The liver, gallbladder, and adrenal glands are unremarkable. There is mild atrophy of the pancreas. Punctate calcifications in the spleen. Bilateral renal vascular calcifications. Punctate calcifications kidneys likely within the vasculature. No definite nephrolithiasis. No hydronephrosis or perinephric fat stranding. The bladder is unremarkable. Uterus is surgically absent. No pelvic masses. The stomach is unremarkable. Small bowel is unremarkable. Normal appendix. Descending and transverse colon are unremarkable. There is mild wall thickening and pericolonic inflammatory changes at the splenic flexure the colon. No significant diverticular disease in this region. There is mild diverticulosis at the sigmoid colon. No free air or free fluid. Extensive atherosclerotic calcification of the abdom inal aorta and branches. No aneurysm. No abdominopelvic adenopathy. Soft tissues are unremarkable. Mild degenerative changes in the spine. Impression: 1. Wall thickening and pericolonic inflammatory changes at the colonic splenic flexure concerning for colitis. Differential includes ischemic, infectious and inflammatory etiologies. No significant diverticular disease in this region. ------ Exposure: One or more of the following individualized dose reduction techniques were utilized for this examination: 1. Automated exposure control 2. Adjustment of the mA and/or kV according to patient size 3. Use of iterative reconstruction technique. Electronically signed by: Bon Alcala MD (03/20/2021 8:31 AM) [id number] DICTATED and SIGNED BY: BON ALCALA MD DATE: 03/20/21 [id number] 0 Course & Med Decision Making: Course & Med Decision Making Pertinent Labs and Imaging studies reviewed. (See chart for details) Patient is a 70-year-old female who present to ER due to rectal bleeding and abdominal pain. CT scan of the abdomen pelvis show evidence of colitis. Patient be admitted to hospital for further evaluation and treatment, discussed with hospitalist on-call Dr. Ish Farmer who agreed to admit the patient. Dragon Disclaimer: Dragon Disclaimer: This electronic medical record was generated, in whole or in part, using a voice recognition dictation system. Departure Departure Impression: Primary Impression: Rectal bleeding Additional Impression: Colitis Disposition: ADMITTED INPATIENT Admitting Physician: FLYNN (Dr. Farmer) Condition: STABLE Referrals: LARS TEE MD (PCP) JACKIE HAGEN DO Mar 20, 2021 08:03
--- NOTE | 2021-03-20 08:34 | RAD ---
CT ABDOMEN+PELVIS WO pericolonic fat stranding at the splenic flexure. History: Left lower quadrant a bdominal pain, rectal bleeding. Comparison: CT abdomen pelvis 08/05/2016 Technique: CT of the abdomen and pelvis without contrast Findings: Atelectasis and a few calcified granulomas bases. Trace pericardial fluid. No pleural effusion. The liver, gallbladder, and adrenal glands are unremarkable. There is mild atrophy of the pancreas. P unctate calcifications in the spleen. Bilateral renal vascular calcifications. Punctate calcification s kidneys likely within the vasculature. No definite nephrolithiasis. No hydronephrosis or perinephri c fat stranding. The bladder is unremarkable. Uterus is surgically absent. No pelvic masses. The stomach is unremarkable. Small bowel is unremarkable. Normal appendix. Descending and transverse colon are unremarkable. There is mild wall thickening and pericolonic inflammatory changes at the spl enic flexure the colon. No significant diverticular disease in this region. There is mild diverticulo sis at the sigmoid colon. No free air or free fluid. Extensive atherosclerotic calcification of the abdominal aorta and branche s. No aneurysm. No abdominopelvic adenopathy. Soft tissues are unremarkable. Mild degenerative change s in the spine. Impression: 1. Wall thickening and pericolonic inflammatory changes at the colonic splenic flexure concerning fo r colitis. Differential includes ischemic, infectious and inflammatory etiologies. No significant div erticular disease in this region. ------ Exposure: One or more of the following individualized dose reduction techniques were utilized for thi s examination: 1. Automated exposure control 2. Adjustment of the mA and/or kV according to patient size 3. Use of iterative reconstruction technique. Electronically signed by: Bon Gibson MD (03/20/2021 8:31 AM) [id number]
[2021-03-20] MEDS ORDERED: PIPERACILLIN/TAZOBACTAM 3.375 GM in IV NORMAL SALINE 50ML 50 ML IV ONE (09:45)
[2021-03-20] MEDS ORDERED: MORPHINE SULFATE 4 MG/ML INJ. IVP PRN (10:30)
[2021-03-20] MEDS ORDERED: IV NORMAL SALINE 1000ML BAG 1,000 ML IV SCH (10:30)
[2021-03-20 10:57] LABS: PROTHROMBIN TIME PATIENT 13.8 SEC (11.7-14.0)
[2021-03-20] MEDS ORDERED: oxyCODONE/APAP 5/325 1 TAB TABLET PO PRN (12:00)
[2021-03-20] MEDS ORDERED: SENNOSIDES 8.6 MG TABLET PO PRN (12:00)
[2021-03-20] MEDS ORDERED: ACETAMINOPHEN 325 MG TABLET. PO PRN (12:00)
[2021-03-20] MEDS ORDERED: PROCHLORPERAZINE 10 MG/2 ML VIAL. IV PRN (12:00)
[2021-03-20] MEDS ORDERED: DEXTROSE 50% 25 GM / 50ML DISP.SYRIN. IV PRN (12:00)
[2021-03-20] MEDS ORDERED: DOCUSATE SODIUM 100 MG CAPSULE. PO PRN (12:00)
--- NOTE | 2021-03-20 12:03 | PDOC1 ---
History and Physical Date of Service: DOS: DATE: 03/20/21 TIME: 12:00 Chief Complaint: Chief Complain: Abdominal pain History of Present Illness: HPI: 70 yo F with PMHx of GERD, COPD, DLD, HTN, who comes to the ED with ABD pain and rectal bleeding that started this morning when she was on the toilet. She has had a Hx of diverticulitis in the past and the pt states this is similar to her past episode. Denies fevers, N/V, chest pain, or dysuria. No syncope or lightheadedness. Pt has received COVID vaccine. No rectal pain. Has had a colonoscopy on 10/2020. Past Medical/Surgical History: PMH/PSH: Past Medical History: COPD, High Cholesterol, Hypertension, parkinsons Past Surgical History: shoulder, hand, mesh implant Allergies: Allergies: Coded Allergies: No Known Drug Allergies (Unverified , 11/07/20) Family History: Family History: Reviewed with no relevant findings Social History: Social History: Smoking Status: Former Smoker Alcohol Use: None Drug Use: None Current Medications: Current Medications Current Medications Morphine Sulfate (Morphine Sulfate) 4 mg 1X ONCE IVP Last administered on 03/20/21at 07:40; Start 03/20/21 at 07:30; Stop 03/20/21 at 07:31; Status DC Piperacillin Sod/ Tazobactam Sod 3.375 gm/Sodium Chloride 50 ml @ 100 mls/hr 1X ONCE IV Last administered on 03/20/21at 10:05; Start 03/20/21 at 09:45; Stop 03/20/21 at 10:14; Status DC Morphine Sulfate (Morphine Sulfate) 4 mg 1X ONCE IVP Last administered on 03/20/21at 10:44; Start 03/20/21 at 10:30; Stop 03/20/21 at 10:31; Status DC Morphine Sulfate (Morphine Sulfate) 4 mg PRN Q2HR PRN IVP PAIN; Start 03/20/21 at 10:30; Stop 03/21/21 at 10:29 Sodium Chloride 1,000 ml @ 75 mls/hr [id number] IV Last administered on 03/20/21at 10:42; Start 03/20/21 at 10:30; Stop 03/21/21 at 10:29 Cefepime HCl (Maxipime) 1 gm Q24H IVP ; Start 03/20/21 at 12:00; Status UNV Metronidazole 100 ml @ 100 mls/hr Q12HR IV ; Start 03/20/21 at 21:00; Status UNV Active Scripts Active Reported Naproxen 500 Mg Tablet 1 Tab PO BID Colace (Docusate Sodium) 100 Mg Capsule 1 Cap PO BID Simvastatin 10 Mg Tablet 10 Mg PO HS Omeprazole 40 Mg Capsule.dr 40 Mg PO DAILY Meclizine Hcl 25 Mg Tablet 25 Mg PO Lisinopril 5 Mg Tablet 5 Mg PO DAILY Latanoprost 2.5 Ml Drops 1 Drop OP HS Clonidine Hcl 0.1 Mg Tablet 0.1 Mg PO DAILY D3-50 (Cholecalciferol (Vitamin D3)) 50,000 Unit Capsule 50,000 Unit PO Albuterol Sulfate Conc Neb Soln (Albuterol Sulfate) 2.5 Mg/0.5 Ml Vial.neb 2.5 Mg NEB ROS: Review of Systems Review of System REVIEW OF SYSTEMS: GENERAL: Denies weakness SKIN: No bruising, hair changes or rashes. EYES: No blurred, double or loss of vision. NOSE AND THROAT: No history of nosebleeds, hoarseness or sore throat. HEART: No history of palpitations, chest pain or shortness of breath on exertion. LUNGS: Denies cough, hemoptysis, wheezing or shortness of breath. GASTROINTESTINAL: + ABD pain and rectal bleeding GENITOURINARY: No history of frequency, urgency, hesitancy or nocturia. NEUROLOGIC: Denies history of numbness, tingling, or tremor. PSYCHIATRIC: No history of panic, anxiety or depression. ENDOCRINE: No history of heat or cold intolerance, polyuria or polydipsia. EXTREMITIES: Denies joint pain, pain on walking or stiffness. Physical Exam: Vital Signs: Vital Signs Date Time Temp Pulse Resp B/P (MAP) Pulse Ox O2 Delivery O2 Flow Rate FiO2 03/20/21 10:44 19 99 Nasal Cannula 2.0 03/20/21 06:52 98.2 113 204/99 98.2 Physcial Exam: General: Well developed, well nourished, no acute distress, well appearing HEENT: Pupils equally round and reactive to light, EOMI, no discharge, normal conjunctiva Neck: Supple, no nuchal rigidity, no JVD, trachea midline, no tenderness Cardiac: RRR, no murmurs, no gallops, no rubs Chest/Lungs: CTAB, no wheeze, no rhonchi, no crackles Abdomen: soft, non-distended, no guarding, no peritoneal signs, tender to palpation in the left lower quadrant Back: No tenderness Extremities: no edema, pulses intact, non-tender,capillary refill <3 sec bilateral upper and lower extremities, Neuro: Alert and oriented x 4, no focal deficits, normal speech Labs: Labs: Laboratory Tests Test 03/20/21 07:00 03/20/21 10:22 03/20/21 10:51 White Blood Count 15.4 x10^3/uL (4.0-11.0) Red Blood Count 4.64 x10^6/uL (3.50-5.40) Hemoglobin 15.0 g/dL (12.0-15.5) Hematocrit 43.9 % (36.0-47.0) Mean Corpuscular Volume 95 fL (79-100) Mean Corpuscular Hemoglobin 32 pg (25-35) Mean Corpuscular Hemoglobin Concent 34 g/dL (31-37) Red Cell Distribution Width 13.3 % (11.5-14.5) Platelet Count 279 x10^3/uL (140-400) Neutrophils (%) (Auto) 75 % (31-73) Lymphocytes (%) (Auto) 16 % (24-48) Monocytes (%) (Auto) 9 % (0-9) Eosinophils (%) (Auto) 0 % (0-3) Basophils (%) (Auto) 0 % (0-3) Neutrophils # (Auto) 11.5 x10^3/uL (1.8-7.7) Lymphocytes # (Auto) 2.4 x10^3/uL (1.0-4.8) Monocytes # (Auto) 1.4 x10^3/uL (0.0-1.1) Eosinophils # (Auto) 0.0 x10^3/uL (0.0-0.7) Basophils # (Auto) 0.0 x10^3/uL (0.0-0.2) Sodium Level 137 mmol/L (136-145) Potassium Level 3.9 mmol/L (3.5-5.1) Chloride Level 102 mmol/L (98-107) Carbon Dioxide Level 28 mmol/L (21-32) Anion Gap 7 (6-14) Blood Urea Nitrogen 19 mg/dL (7-20) Creatinine 1.2 mg/dL (0.6-1.0) Estimated GFR (Cockcroft-Gault) 44.7 BUN/Creatinine Ratio 16 (6-20) Glucose Level 120 mg/dL (70-99) Calcium Level 11.2 mg/dL (8.5-10.1) Magnesium Level 2.0 mg/dL (1.8-2.4) Total Bilirubin 0.7 mg/dL (0.2-1.0) Aspartate Amino Transf (AST/SGOT) 19 U/L (15-37) Alanine Aminotransferase (ALT/SGPT) 23 U/L (14-59) Alkaline Phosphatase 108 U/L (46-116) Total Protein 6.8 g/dL (6.4-8.2) Albumin 3.6 g/dL (3.4-5.0) Albumin/Globulin Ratio 1.1 (1.0-1.7) Prothrombin Time 13.8 SEC (11.7-14.0) Prothromb Time International Ratio 1.1 (0.8-1.1) Activated Partial Thromboplast Time 27 SEC (24-38) SARS-CoV-2 Antigen (Rapid) Negative (NEGATIVE) Laboratory Tests Test 03/20/21 07:00 03/20/21 10:22 03/20/21 10:51 White Blood Count 15.4 x10^3/uL (4.0-11.0) Red Blood Count 4.64 x10^6/uL (3.50-5.40) Hemoglobin 15.0 g/dL (12.0-15.5) Hematocrit 43.9 % (36.0-47.0) Mean Corpuscular Volume 95 fL (79-100) Mean Corpuscular Hemoglobin 32 pg (25-35) Mean Corpuscular Hemoglobin Concent 34 g/dL (31-37) Red Cell Distribution Width 13.3 % (11.5-14.5) Platelet Count 279 x10^3/uL (140-400) Neutrophils (%) (Auto) 75 % (31-73) Lymphocytes (%) (Auto) 16 % (24-48) Monocytes (%) (Auto) 9 % (0-9) Eosinophils (%) (Auto) 0 % (0-3) Basophils (%) (Auto) 0 % (0-3) Neutrophils # (Auto) 11.5 x10^3/uL (1.8-7.7) Lymphocytes # (Auto) 2.4 x10^3/uL (1.0-4.8) Monocytes # (Auto) 1.4 x10^3/uL (0.0-1.1) Eosinophils # (Auto) 0.0 x10^3/uL (0.0-0.7) Basophils # (Auto) 0.0 x10^3/uL (0.0-0.2) Sodium Level 137 mmol/L (136-145) Potassium Level 3.9 mmol/L (3.5-5.1) Chloride Level 102 mmol/L (98-107) Carbon Dioxide Level 28 mmol/L (21-32) Anion Gap 7 (6-14) Blood Urea Nitrogen 19 mg/dL (7-20) Creatinine 1.2 mg/dL (0.6-1.0) Estimated GFR (Cockcroft-Gault) 44.7 BUN/Creatinine Ratio 16 (6-20) Glucose Level 120 mg/dL (70-99) Calcium Level 11.2 mg/dL (8.5-10.1) Magnesium Level 2.0 mg/dL (1.8-2.4) Total Bilirubin 0.7 mg/dL (0.2-1.0) Aspartate Amino Transf (AST/SGOT) 19 U/L (15-37) Alanine Aminotransferase (ALT/SGPT) 23 U/L (14-59) Alkaline Phosphatase 108 U/L (46-116) Total Protein 6.8 g/dL (6.4-8.2) Albumin 3.6 g/dL (3.4-5.0) Albumin/Globulin Ratio 1.1 (1.0-1.7) Prothrombin Time 13.8 SEC (11.7-14.0) Prothromb Time International Ratio 1.1 (0.8-1.1) Activated Partial Thromboplast Time 27 SEC (24-38) SARS-CoV-2 Antigen (Rapid) Negative (NEGATIVE) Images: Images PROCEDURE: CT ABDOMEN PELVIS WO CONTRAST CT ABDOMEN+PELVIS WO pericolonic fat stranding at the splenic flexure. History: Left lower quadrant abdominal pain, rectal bleeding. Comparison: CT abdomen pelvis 08/05/2016 Technique: CT of the abdomen and pelvis without contrast Findings: Atelectasis and a few calcified granulomas bases. Trace pericardial fluid. No pleural effusion. The liver, gallbladder, and adrenal glands are unremarkable. There is mild atrophy of the pancreas. Punctate calcifications in the spleen. Bilateral renal vascular calcifications. Punctate calcifications kidneys likely within the vasculature. No definite nephrolithiasis. No hydronephrosis or perinephric fat stranding. The bladder is unremarkable. Uterus is surgically absent. No pelvic masses. The stomach is unremarkable. Small bowel is unremarkable. Normal appendix. Descending and transverse colon are unremarkable. There is mild wall thickening and pericolonic inflammatory changes at the splenic flexure the colon. No significant diverticular disease in this region. There is mild diverticulosis at the sigmoid colon. No free air or free fluid. Extensive atherosclerotic calcification of the abdominal aorta and branches. No aneurysm. No abdominopelvic adenopathy. Soft tissues are unremarkable. Mild degenerative changes in the spine. Impression: 1. Wall thickening and pericolonic inflammatory changes at the colonic splenic flexure concerning for colitis. Differential includes ischemic, infectious and inflammatory etiologies. No significant diverticular disease in this region. Assessment/Plan Assessment/Plan Acute abdominal pain due to colitis at the splenic flexure concerning for ischemic versus inflammatory ANATOLY due to vasomotor nephropathy Hypercalcemia Hx of diverticulitis Admit to hospital service for further management Pending ionized calcium level Continue IVF continue Empiric IV Abx Trend Hb GI Consult HOLD for DVT prophylaxis ProtonixGI prophylaxis ADA diet Full code Discussed with RN and SW Disposition inpt management as above Surrogate decision maker is daughter Justifications for Admission Other Justification Acute colitis NIRANJAN GOLDMAN MD Mar 20, 2021 12:03
--- NOTE | 2021-03-20 13:38 | PDOC2 ---
GI CONSULT Date of Service: DATE: 03/20/21 TIME: 13:16 Reason For Consult: rectal bleeding HPI: HPI: 70 y/o female admitted through ER. Acute onset of lower abdominal cramping ("when it starts it's constant"), vomiting (bilious/food), and diarrhea that eventually "turned to straight blood" at 3:00 a.m. Associated w/ feeling faint and very sweaty. Reports ongoing pain and some bleeding since arrival here. Says this has happened a few times in the past - daughter Milana says diagnosed with colitis, pt says diagnosed with diverticulitis. She just knows that she needs to come in and get antibiotics. Denies precipitating events. H/o GERD controlled w/ omeprazole QD. No dysphagia, chronic n/v, chronic abd pain, diarrhea, melena, change in appetite, or weight loss. H/o constipation controlled w/ stool softener, fiber, and intermittent MoM. Recalls EGD long ago w/o significant findings - no EGD on file per our office staff. Colonoscopy by Dr. Mason in 10/2020 showed diverticulosis and non-bleeding internal hemorrhoids - no biopsies taken. UGI in 2019 showed mild tertiary contractions in the esophagus. CT A/P in 2017 showed non-specific colitis. No GB, liver, pancreas, or PUD history. On ASA 325mg QD. Summary list includes Naproxen - she denies. PMH: PMH: HTN, HLD, COPD, UTI, parathyroid adenoma, depression/anxiety, tremor tubal ligation, hysterectomy, left rotator cuff repair, RCTR, parathyroid surgery FH: Family History: No pertinent hx Social History: Smoke: Quit ALCOHOL: none Drugs: None ROS: GEN: Denies fevers, chills, sweats HEENT: Denies blurred vision, sore throat CV: Denies chest pain RESP: Denies shortness of air, cough GI: Per HPI : Denies hematuria, dysuria ENDO: Denies weight changes NEURO: Denies confusion, dizziness MSK: Denies weakness, joint pain/swelling SKIN: Denies jaundice, pruritus Vitals: Vitals: Vital Signs Date Time Temp Pulse Resp B/P (MAP) Pulse Ox O2 Delivery O2 Flow Rate FiO2 03/20/21 11:14 19 95 Nasal Cannula 2.0 03/20/21 06:52 98.2 113 204/99 98.2 Labs: Labs: Laboratory Tests Test 03/20/21 07:00 03/20/21 10:22 03/20/21 10:51 03/20/21 12:23 White Blood Count 15.4 x10^3/uL (4.0-11.0) Red Blood Count 4.64 x10^6/uL (3.50-5.40) Hemoglobin 15.0 g/dL (12.0-15.5) Hematocrit 43.9 % (36.0-47.0) Mean Corpuscular Volume 95 fL (79-100) Mean Corpuscular Hemoglobin 32 pg (25-35) Mean Corpuscular Hemoglobin Concent 34 g/dL (31-37) Red Cell Distribution Width 13.3 % (11.5-14.5) Platelet Count 279 x10^3/uL (140-400) Neutrophils (%) (Auto) 75 % (31-73) Lymphocytes (%) (Auto) 16 % (24-48) Monocytes (%) (Auto) 9 % (0-9) Eosinophils (%) (Auto) 0 % (0-3) Basophils (%) (Auto) 0 % (0-3) Neutrophils # (Auto) 11.5 x10^3/uL (1.8-7.7) Lymphocytes # (Auto) 2.4 x10^3/uL (1.0-4.8) Monocytes # (Auto) 1.4 x10^3/uL (0.0-1.1) Eosinophils # (Auto) 0.0 x10^3/uL (0.0-0.7) Basophils # (Auto) 0.0 x10^3/uL (0.0-0.2) Sodium Level 137 mmol/L (136-145) Potassium Level 3.9 mmol/L (3.5-5.1) Chloride Level 102 mmol/L (98-107) Carbon Dioxide Level 28 mmol/L (21-32) Anion Gap 7 (6-14) Blood Urea Nitrogen 19 mg/dL (7-20) Creatinine 1.2 mg/dL (0.6-1.0) Estimated GFR (Cockcroft-Gault) 44.7 BUN/Creatinine Ratio 16 (6-20) Glucose Level 120 mg/dL (70-99) Calcium Level 11.2 mg/dL (8.5-10.1) Magnesium Level 2.0 mg/dL (1.8-2.4) Total Bilirubin 0.7 mg/dL (0.2-1.0) Aspartate Amino Transf (AST/SGOT) 19 U/L (15-37) Alanine Aminotransferase (ALT/SGPT) 23 U/L (14-59) Alkaline Phosphatase 108 U/L (46-116) Total Protein 6.8 g/dL (6.4-8.2) Albumin 3.6 g/dL (3.4-5.0) Albumin/Globulin Ratio 1.1 (1.0-1.7) Prothrombin Time 13.8 SEC (11.7-14.0) Prothromb Time International Ratio 1.1 (0.8-1.1) Activated Partial Thromboplast Time 27 SEC (24-38) SARS-CoV-2 Antigen (Rapid) Negative (NEGATIVE) Ionized Calcium 1.43 mmol/L (1.13-1.32) Allergies: Coded Allergies: No Known Drug Allergies (Unverified , 11/07/20) Medications: Current Medications Medications (Trade) Dose Ordered Sig/Anais Route PRN Reason Start Time Stop Time Status Last Admin Dose Admin Morphine Sulfate (Morphine Sulfate) 4 mg 1X ONCE IVP 03/20/21 07:30 03/20/21 07:31 DC 03/20/21 07:40 Piperacillin Sod/ Tazobactam Sod 3.375 gm/Sodium Chloride 50 ml @ 100 mls/hr 1X ONCE IV 03/20/21 09:45 03/20/21 10:14 DC 03/20/21 10:05 Morphine Sulfate (Morphine Sulfate) 4 mg 1X ONCE IVP 03/20/21 10:30 03/20/21 10:31 DC 03/20/21 10:44 Sodium Chloride 1,000 ml @ 75 mls/hr [id number] IV 03/20/21 10:30 03/21/21 10:29 03/20/21 10:42 Imaging: Imaging: CT A/P Findings: Atelectasis and a few calcified granulomas bases. Trace pericardial fluid. No pleural effusion. The liver, gallbladder, and adrenal glands are unremarkable. There is mild atrophy of the pancreas. Punctate calcifications in the spleen. Bilateral renal vascular calcifications. Punctate calcifications kidneys likely within the vasculature. No definite nephrolithiasis. No hydronephrosis or perinephric fat stranding. The bladder is unremarkable. Uterus is surgically absent. No pelvic masses. The stomach is unremarkable. Small bowel is unremarkable. Normal appendix. Desce nding and transverse colon are unremarkable. There is mild wall thickening and pericolonic inflammatory changes at the splenic flexure the colon. No significant diverticular disease in this region. There is mild diverticulosis at the sigmoid colon. No free air or free fluid. Extensive atherosclerotic calcification of the abdominal aorta and branches. No aneurysm. No abdominopelvic adenopathy. Soft tissues are unremarkable. Mild degenerative changes in the spine. Impression: 1. Wall thickening and pericolonic inflammatory changes at the colonic splenic flexure concerning for colitis. Differential includes ischemic, infectious and i nflammatory etiologies. No significant diverticular disease in this region. PE: GEN: NAD, daughter present HEENT: Atraumatic, PERRL LUNGS: diminished, NC 2L HEART: RRR ABD: BS+, soft, non-distended, mild lower abdominal discomfort EXTREMITY: RUE tremor SKIN: No rashes, no jaundice NEURO/PSYCH: A & O 3 A/P: A/P: Lower abd cramping, vomiting, diarrhea/hematochezia - similar symptoms in past Leukocytosis, hypercalcemia GERD - controlled w/ PPI QD CRC screen - UTD (10/2020) H/o constipation - controlled w/ stool softener, fiber, and MoM PRN Diverticulosis, hemorrhoids ASA use COVID negative -- ?ischemic colitis Hypertensive in ER w/ normal Hgb and BUN. Started on atbx. She reports ongoing bleeding - monitor this, monitor labs. Hold ASA. Sip of water and ice chips for now, advance diet as symptoms improve. IVON TOUSSAINT Mar 20, 2021 13:38
[2021-03-20] MEDS: PANTOPRAZOLE 40 MG TABLET.DR. PO SCH (14:00)
[2021-03-20 15:25] VITALS: BP 116/66
[2021-03-20] MEDS ORDERED: ALPRAZolam 1 MG TABLET PO PRN (15:45)
[2021-03-20] MEDS: IPRATRPIUM/ALBUTEROL 0.5/2.5MG 3 ML NEBU. NEB SCH ×2 (16:00→20:21)
[2021-03-20] MEDS: SUCRALFATE 1 GM TABLET. PO SCH ×2 (16:30→23:09)
[2021-03-20] MEDS: IV NORMAL SALINE 1000ML BAG 1,000 ML IV SCH ×2 (16:47→20:59)
[2021-03-20] MEDS: ONDANSETRON PF 4 MG/2 ML VIAL. IVP PRN (16:48)
[2021-03-20] MEDS: CEFEPIME HCL IV Push 1 GM VIAL. IVP SCH (16:48)
[2021-03-20] MEDS: ASPIRIN 325 MG TABLET PO SCH (17:00)
--- NOTE | 2021-03-20 17:42 | NUR ---
Pt admitted from ED at 1330 to room 416, daughter accompanied to room. Transported by bed, O2 at 3L/min via NC, IV to RAC with NS. C/o pain to ABD rating it a 9/10. Pt did have covid vaccine in September and October. Current with flu and pneumonia. Admission paperwork has been completed.
[2021-03-20 19:00] VITALS: BP 111/59
[2021-03-20] MEDS: BUDESONIDE 0.5 MG/2 ML NEBU. NEB SCH (20:21)
[2021-03-20] MEDS: CARBIDOPA/LEVODOPA 25/100MG TABLET PO SCH (20:51)
[2021-03-20] MEDS: oxyCODONE/APAP 5/325 1 TAB TABLET PO PRN (20:54)
[2021-03-20] MEDS: HEPARIN for SUB-Q USE 5,000 UNIT/ML VIAL. SQ SCH (20:59)
[2021-03-20 23:00] VITALS: BP 123/67
[2021-03-21] MEDS: IV NORMAL SALINE 1000ML BAG 1,000 ML IV SCH ×2 (01:51→18:00)
[2021-03-21 03:00] VITALS: BP 163/85
[2021-03-21] MEDS: SUCRALFATE 1 GM TABLET. PO SCH ×4 (05:30→21:33)
[2021-03-21 06:13] LABS: BASO % 0 % (0-3); EOS # 0.1 x10^3/uL (0.0-0.7); EOS % 1 % (0-3); HEMATOCRIT 41.4 % (36.0-47.0); HEMOGLOBIN 13.7 g/dL (12.0-15.5); LYMPH % 20 % (24-48); MEAN CORPUSCULAR HEMOGLOBIN 32 pg (25-35); MEAN CORPUSCULAR HGB CONC 33 g/dL (31-37); MEAN CORPUSCULAR VOLUME 97 fL (79-100); MONO # 0.7 x10^3/uL (0.0-1.1); MONO % 7 % (0-9); NEUT % 71 % (31-73); PLATELET COUNT 249 x10^3/uL (140-400); RED BLOOD COUNT 4.26 x10^6/uL (3.50-5.40); RED CELL DISTRIBUTION WIDTH 13.4 % (11.5-14.5); WHITE BLOOD COUNT 9.8 x10^3/uL (4.0-11.0)
[2021-03-21 06:33] LABS: CALCIUM 10.2 mg/dL (8.5-10.1); CREATININE 0.9 mg/dL (0.6-1.0); GFR 62.3; MAGNESIUM 1.9 mg/dL (1.8-2.4); PHOSPHORUS 2.2 mg/dL (2.6-4.7); POTASSIUM 4.2 mmol/L (3.5-5.1)
[2021-03-21] MEDS: BUDESONIDE 0.5 MG/2 ML NEBU. NEB SCH ×2 (08:03→20:17)
[2021-03-21] MEDS: IPRATRPIUM/ALBUTEROL 0.5/2.5MG 3 ML NEBU. NEB SCH ×4 (08:03→20:17)
[2021-03-21] MEDS: cloNIDine HCL 0.1 MG TABLET PO SCH (08:34)
[2021-03-21] MEDS: PANTOPRAZOLE 40 MG TABLET.DR. PO SCH (08:35)
[2021-03-21] MEDS: LISINOPRIL 10 MG TABLET PO SCH (08:35)
[2021-03-21] MEDS: CHOLECALCIFEROL (VITAMIN D3) 1,000 UNIT TABLET PO SCH (08:35)
[2021-03-21] MEDS: CARBIDOPA/LEVODOPA 25/100MG TABLET PO SCH ×3 (08:35→21:33)
[2021-03-21] MEDS: ASPIRIN 325 MG TABLET PO SCH (08:35)
[2021-03-21] MEDS: HEPARIN for SUB-Q USE 5,000 UNIT/ML VIAL. SQ SCH ×2 (08:40→21:42)
[2021-03-21] MEDS ORDERED: SODIUM PHOSPHATE 15 MMOL in IV NORMAL SALINE 100ML 100 ML IV ONE (09:00)
--- NOTE | 2021-03-21 10:27 | NUR ---
Dr. Farmer was here and spoke with pt in regards to diet, order to start with CLD and then ADAT if pt does not have pain after.
--- NOTE | 2021-03-21 10:56 | PDOC ---
[employer] PROGRESS NOTE Date of Service DOS: DATE: 03/21/21 TIME: 10:54 Chief Complaint Chief Complaint Acute abdominal pain due to colitis at the splenic flexure concerning for ischemic versus inflammatory ANATOLY due to vasomotor nephropathy Hypercalcemia Hx of diverticulitis Admit to hospital service for further management Pending ionized calcium level Continue IVF continue Empiric IV Abx Trend Hb GI Consult HOLD for DVT prophylaxis ProtonixGI prophylaxis ADA diet Full code Discussed with RN and SW Disposition inpt management as above Surrogate decision maker is daughter History of Present Illness History of Present Illness 70 yo F with PMHx of GERD, COPD, DLD, HTN, who comes to the ED with ABD pain and rectal bleeding that started this morning when she was on the toilet. She has had a Hx of diverticulitis in the past and the pt states this is similar to her past episode. Denies fevers, N/V, chest pain, or dysuria. No syncope or lightheadedness. Pt has received COVID vaccine. No rectal pain. Has had a colonoscopy on 10/2020. 03/21/2021 No acute events overnight. Patient seen and examined bedside. Patient does endorse flatus but no bowel movement. She did have a bowel movement last night that was nonbloody. Will advance to clear liquid diet and as tolerated to soft GI. Awaiting for further GI recommendations before discharge. Would ultimately like the patient to having nonbloody bowel movement As well before discharge. Patient's chart, labs, images were reviewed and discussed with RN Vitals/I&O Vitals/I&O: Vital Signs Date Time Temp Pulse Resp B/P (MAP) Pulse Ox O2 Delivery O2 Flow Rate FiO2 03/21/21 08:35 74 163/85 03/21/21 08:05 95 Nasal Cannula 2.0 03/21/21 03:00 98.3 18 98.3 I & O 03/20/21 03/20/21 03/21/21 15:00 23:00 07:00 Intake Total 50 ml 80.12 ml 1119.88 ml Output Total 400 ml Balance 50 ml 80.12 ml 719.88 ml Physical Exam General: Alert, Oriented X3, Cooperative Heart: No murmurs Lungs: Clear Abdomen: Normal bowel sounds Extremities: No clubbing Skin: No rashes Labs Labs: Laboratory Tests Test 8/27/21 12:23 03/20/21 14:15 03/21/21 05:40 Ionized Calcium 1.43 mmol/L (1.13-1.32) Lactic Acid Level 0.6 mmol/L (0.4-2.0) White Blood Count 9.8 x10^3/uL (4.0-11.0) Red Blood Count 4.26 x10^6/uL (3.50-5.40) Hemoglobin 13.7 g/dL (12.0-15.5) Hematocrit 41.4 % (36.0-47.0) Mean Corpuscular Volume 97 fL (79-100) Mean Corpuscular Hemoglobin 32 pg (25-35) Mean Corpuscular Hemoglobin Concent 33 g/dL (31-37) Red Cell Distribution Width 13.4 % (11.5-14.5) Platelet Count 249 x10^3/uL (140-400) Neutrophils (%) (Auto) 71 % (31-73) Lymphocytes (%) (Auto) 20 % (24-48) Monocytes (%) (Auto) 7 % (0-9) Eosinophils (%) (Auto) 1 % (0-3) Basophils (%) (Auto) 0 % (0-3) Neutrophils # (Auto) 7.0 x10^3/uL (1.8-7.7) Lymphocytes # (Auto) 2.0 x10^3/uL (1.0-4.8) Monocytes # (Auto) 0.7 x10^3/uL (0.0-1.1) Eosinophils # (Auto) 0.1 x10^3/uL (0.0-0.7) Basophils # (Auto) 0.0 x10^3/uL (0.0-0.2) Sodium Level 143 mmol/L (136-145) Potassium Level 4.2 mmol/L (3.5-5.1) Chloride Level 108 mmol/L (98-107) Carbon Dioxide Level 29 mmol/L (21-32) Anion Gap 6 (6-14) Blood Urea Nitrogen 12 mg/dL (7-20) Creatinine 0.9 mg/dL (0.6-1.0) Estimated GFR (Cockcroft-Gault) 62.3 Glucose Level 92 mg/dL (70-99) Calcium Level 10.2 mg/dL (8.5-10.1) Phosphorus Level 2.2 mg/dL (2.6-4.7) Magnesium Level 1.9 mg/dL (1.8-2.4) Assessment and Plan Assessmemt and Plan Problems Medical Problems: (1) Colitis Status: Acute (2) Rectal bleeding Status: Acute Comment Review of Relevant I have reviewed the following items damian (where applicable) has been applied. Medications: Current Medications Medications (Trade) Dose Ordered Sig/Anais Route PRN Reason Start Time Stop Time Status Last Admin Dose Admin Cefepime HCl (Maxipime) 1 gm Q24H IVP 03/20/21 13:00 03/20/21 16:48 Metronidazole 100 ml @ 100 mls/hr Q12HR IV 03/20/21 21:00 03/21/21 09:59 Ondansetron HCl (Zofran) 4 mg PRN Q6HRS PRN IVP NAUSEA/VOMITING 03/20/21 12:00 03/20/21 16:48 Sodium Chloride 1,000 ml @ 100 mls/hr Q10H IV 03/20/21 12:00 03/21/21 01:51 Heparin Sodium (Porcine) (Heparin Sodium) 5,000 unit Q12HR SQ 03/20/21 21:00 03/21/21 08:40 Oxycodone/ Acetaminophen (Percocet 5/325) 2 tab PRN Q4HRS PRN PO MODERATE PAIN, SEVERE PAIN 03/20/21 12:00 03/20/21 20:54 Pantoprazole Sodium (Protonix) 40 mg DAILYAC PO 03/20/21 14:00 03/21/21 08:35 Budesonide (Pulmicort) 0.5 mg RTBID NEB 03/20/21 20:00 03/21/21 08:03 Carbidopa/Levodopa (Sinemet 25/100) 1 tab TID PO 03/20/21 21:00 03/21/21 08:35 Vitamin D (Vitamin D3) 1,000 unit DAILY PO 03/21/21 09:00 03/21/21 08:35 Albuterol/ Ipratropium (Duoneb) 3 ml RTQID NEB 03/20/21 16:00 03/21/21 08:03 Sucralfate (Carafate) 1 gm QIDACHS PO 03/20/21 16:30 03/21/21 05:30 Aspirin (Stacie Aspirin) 325 mg [id number] PO 03/20/21 17:00 03/21/21 08:35 Clonidine HCl (Catapres) 0.1 mg DAILY PO 03/21/21 09:00 03/21/21 08:34 Lisinopril (Prinivil) 10 mg DAILY PO 03/21/21 09:00 03/21/21 08:35 Sodium Phosphate 15 mmol/Sodium Chloride 105 ml @ 105 mls/hr 1X ONCE IV 03/21/21 09:00 03/21/21 09:59 DC 03/21/21 10:53 Justifications for Admission Other Justification Acute colitis NIRANJAN GOLDMAN MD Mar 21, 2021 10:56
[2021-03-21 11:00] VITALS: BP 131/72
[2021-03-21] MEDS: ONDANSETRON PF 4 MG/2 ML VIAL. IVP PRN (13:11)
[2021-03-21 15:21] VITALS: BP 147/68
--- NOTE | 2021-03-21 15:25 | PDOC ---
Date of Service: DATE: 03/21/21 TIME: 15:23 Subjective: Subjective: pain resolved. Still with nausea Objective: Vital Signs: Vital Signs Date Time Temp Pulse Resp B/P (MAP) Pulse Ox O2 Delivery O2 Flow Rate FiO2 03/21/21 15:21 98.7 85 18 147/68 (94) 93 Nasal Cannula 2.0 98.7 Labs: Laboratory Tests Test 03/21/21 05:40 White Blood Count 9.8 x10^3/uL (4.0-11.0) Red Blood Count 4.26 x10^6/uL (3.50-5.40) Hemoglobin 13.7 g/dL (12.0-15.5) Hematocrit 41.4 % (36.0-47.0) Mean Corpuscular Volume 97 fL (79-100) Mean Corpuscular Hemoglobin 32 pg (25-35) Mean Corpuscular Hemoglobin Concent 33 g/dL (31-37) Red Cell Distribution Width 13.4 % (11.5-14.5) Platelet Count 249 x10^3/uL (140-400) Neutrophils (%) (Auto) 71 % (31-73) Lymphocytes (%) (Auto) 20 % (24-48) Monocytes (%) (Auto) 7 % (0-9) Eosinophils (%) (Auto) 1 % (0-3) Basophils (%) (Auto) 0 % (0-3) Neutrophils # (Auto) 7.0 x10^3/uL (1.8-7.7) Lymphocytes # (Auto) 2.0 x10^3/uL (1.0-4.8) Monocytes # (Auto) 0.7 x10^3/uL (0.0-1.1) Eosinophils # (Auto) 0.1 x10^3/uL (0.0-0.7) Basophils # (Auto) 0.0 x10^3/uL (0.0-0.2) Sodium Level 143 mmol/L (136-145) Potassium Level 4.2 mmol/L (3.5-5.1) Chloride Level 108 mmol/L (98-107) Carbon Dioxide Level 29 mmol/L (21-32) Anion Gap 6 (6-14) Blood Urea Nitrogen 12 mg/dL (7-20) Creatinine 0.9 mg/dL (0.6-1.0) Estimated GFR (Cockcroft-Gault) 62.3 Glucose Level 92 mg/dL (70-99) Calcium Level 10.2 mg/dL (8.5-10.1) Phosphorus Level 2.2 mg/dL (2.6-4.7) Magnesium Level 1.9 mg/dL (1.8-2.4) Physical Exam: Physical Exam: ABD: BS+, soft, non-distended, mild lower abdominal discomfort EXTREMITY: RUE tremor SKIN: No rashes, no jaundice NEURO/PSYCH: A & O 3 Assessment & Plan: Assessment : Lower abd cramping, vomiting, diarrhea/hematochezia - similar symptoms in past. Pain resolved Leukocytosis, hypercalcemia GERD - controlled w/ PPI QD CRC screen - UTD (10/2020) H/o constipation - controlled w/ stool softener, fiber, and MoM PRN Diverticulosis, hemorrhoids ASA use COVID negative ?ischemic colitis Hypertensive in ER w/ normal Hgb and BUN. Started on atbx. Plan: Cont Abx prn nausea eds Justicifation of Admission Dx: Justifications for Admission: Justification of Admission Dx: N/A INOCENCIA PHILLIPS MD Mar 21, 2021 15:25
--- NOTE | 2021-03-21 16:34 | NUR ---
[place] [address] and sent to lab
[2021-03-21] MEDS: CEFEPIME HCL IV Push 1 GM VIAL. IVP SCH (16:57)
[2021-03-21 17:18] LABS: FECAL OB PT POSITIVE (NEG)
--- NOTE | 2021-03-21 18:02 | NUR ---
Second stool sample received at 1750, sent to lab
[2021-03-21 19:00] VITALS: BP 148/82
[2021-03-21 23:00] VITALS: BP 148/75
[2021-03-22 03:00] VITALS: BP 143/75
[2021-03-22 06:16] LABS: BASO # 0.1 x10^3/uL (0.0-0.2); BASO % 1 % (0-3); EOS # 0.1 x10^3/uL (0.0-0.7); EOS % 1 % (0-3); HEMATOCRIT 40.2 % (36.0-47.0); HEMOGLOBIN 13.8 g/dL (12.0-15.5); LYMPH # 1.7 x10^3/uL (1.0-4.8); LYMPH % 16 % (24-48); MEAN CORPUSCULAR HEMOGLOBIN 33 pg (25-35); MEAN CORPUSCULAR HGB CONC 34 g/dL (31-37); MEAN CORPUSCULAR VOLUME 95 fL (79-100); MONO # 0.6 x10^3/uL (0.0-1.1); MONO % 6 % (0-9); NEUT # 7.7 x10^3/uL (1.8-7.7); NEUT % 76 % (31-73); PLATELET COUNT 235 x10^3/uL (140-400); RED BLOOD COUNT 4.23 x10^6/uL (3.50-5.40); RED CELL DISTRIBUTION WIDTH 12.7 % (11.5-14.5); WHITE BLOOD COUNT 10.1 x10^3/uL (4.0-11.0)
[2021-03-22 06:31] LABS: CALCIUM 10.1 mg/dL (8.5-10.1); CREATININE 0.8 mg/dL (0.6-1.0); GFR 71.3; MAGNESIUM 1.8 mg/dL (1.8-2.4); POTASSIUM 3.8 mmol/L (3.5-5.1)
[2021-03-22] MEDS: IV NORMAL SALINE 1000ML BAG 1,000 ML IV SCH ×2 (06:56→13:34)
[2021-03-22 07:10] VITALS: BP 138/75
[2021-03-22] MEDS: IPRATRPIUM/ALBUTEROL 0.5/2.5MG 3 ML NEBU. NEB SCH ×4 (07:58→20:49)
[2021-03-22] MEDS: BUDESONIDE 0.5 MG/2 ML NEBU. NEB SCH ×2 (07:58→20:50)
[2021-03-22] MEDS: SUCRALFATE 1 GM TABLET. PO SCH ×4 (09:01→20:40)
[2021-03-22] MEDS: CHOLECALCIFEROL (VITAMIN D3) 1,000 UNIT TABLET PO SCH (09:01)
[2021-03-22] MEDS: LACTOBACILLUS RHAMNOSUS GG 1 CAPSULE. PO SCH ×2 (09:02→20:41)
[2021-03-22] MEDS: cloNIDine HCL 0.1 MG TABLET PO SCH (09:02)
[2021-03-22] MEDS: ASPIRIN 325 MG TABLET PO SCH (09:03)
[2021-03-22] MEDS: LISINOPRIL 10 MG TABLET PO SCH (09:03)
[2021-03-22] MEDS: PANTOPRAZOLE 40 MG TABLET.DR. PO SCH (09:03)
[2021-03-22] MEDS: CARBIDOPA/LEVODOPA 25/100MG TABLET PO SCH ×3 (09:03→20:40)
[2021-03-22] MEDS: HEPARIN for SUB-Q USE 5,000 UNIT/ML VIAL. SQ SCH ×2 (09:11→20:49)
[2021-03-22 11:14] VITALS: BP 138/74
--- NOTE | 2021-03-22 11:34 | PDOC ---
[employer] PROGRESS NOTE Date of Service DOS: DATE: 03/22/21 TIME: 11:33 Chief Complaint Chief Complaint Acute abdominal pain due to colitis at the splenic flexure concerning for ischemic versus inflammatory ANATOLY due to vasomotor nephropathy Hypercalcemia Hx of diverticulitis Admit to hospital service for further management Pending ionized calcium level Continue IVF continue Empiric IV Abx Trend Hb GI Consult HOLD for DVT prophylaxis ProtonixGI prophylaxis ADA diet Full code Discussed with RN and SW Disposition inpt management as above Surrogate decision maker is daughter History of Present Illness History of Present Illness 70 yo F with PMHx of GERD, COPD, DLD, HTN, who comes to the ED with ABD pain and rectal bleeding that started this morning when she was on the toilet. She has had a Hx of diverticulitis in the past and the pt states this is similar to her past episode. Denies fevers, N/V, chest pain, or dysuria. No syncope or lightheadedness. Pt has received COVID vaccine. No rectal pain. Has had a colonoscopy on 10/2020. 03/21/2021 No acute events overnight. Patient seen and examined bedside. Patient does endorse flatus but no bowel movement. She did have a bowel movement last night that was nonbloody. Will advance to clear liquid diet and as tolerated to soft GI. Awaiting for further GI recommendations before discharge. Would ultimately like the patient to having nonbloody bowel movement As well before discharge. Patient's chart, labs, images were reviewed and discussed with RN 03/22/2021 No acute events overnight. Patient seen and examined bedside. Will wait for nonbloody bowel movements. Trend hemoglobin patient's chart, labs, images were reviewed and discussed with RN Vitals/I&O Vitals/I&O: Vital Signs Date Time Temp Pulse Resp B/P (MAP) Pulse Ox O2 Delivery O2 Flow Rate FiO2 03/22/21 11:14 98.3 87 22 138/74 (95) 91 Nasal Cannula 2.0 98.3 I & O 03/21/21 03/21/21 03/22/21 15:00 23:00 07:00 Intake Total 440 ml 952 ml Output Total 200 ml Balance 440 ml 952 ml -200 ml Physical Exam General: Alert, Oriented X3, Cooperative Heart: No murmurs Lungs: Clear Abdomen: Normal bowel sounds Extremities: No clubbing Skin: No rashes Labs Labs: Laboratory Tests Test 03/22/21 06:00 White Blood Count 10.1 x10^3/uL (4.0-11.0) Red Blood Count 4.23 x10^6/uL (3.50-5.40) Hemoglobin 13.8 g/dL (12.0-15.5) Hematocrit 40.2 % (36.0-47.0) Mean Corpuscular Volume 95 fL (79-100) Mean Corpuscular Hemoglobin 33 pg (25-35) Mean Corpuscular Hemoglobin Concent 34 g/dL (31-37) Red Cell Distribution Width 12.7 % (11.5-14.5) Platelet Count 235 x10^3/uL (140-400) Neutrophils (%) (Auto) 76 % (31-73) Lymphocytes (%) (Auto) 16 % (24-48) Monocytes (%) (Auto) 6 % (0-9) Eosinophils (%) (Auto) 1 % (0-3) Basophils (%) (Auto) 1 % (0-3) Neutrophils # (Auto) 7.7 x10^3/uL (1.8-7.7) Lymphocytes # (Auto) 1.7 x10^3/uL (1.0-4.8) Monocytes # (Auto) 0.6 x10^3/uL (0.0-1.1) Eosinophils # (Auto) 0.1 x10^3/uL (0.0-0.7) Basophils # (Auto) 0.1 x10^3/uL (0.0-0.2) Sodium Level 143 mmol/L (136-145) Potassium Level 3.8 mmol/L (3.5-5.1) Chloride Level 108 mmol/L (98-107) Carbon Dioxide Level 26 mmol/L (21-32) Anion Gap 9 (6-14) Blood Urea Nitrogen 5 mg/dL (7-20) Creatinine 0.8 mg/dL (0.6-1.0) Estimated GFR (Cockcroft-Gault) 71.3 Glucose Level 98 mg/dL (70-99) Calcium Level 10.1 mg/dL (8.5-10.1) Magnesium Level 1.8 mg/dL (1.8-2.4) Assessment and Plan Assessmemt and Plan Problems Medical Problems: (1) Colitis Status: Acute (2) Rectal bleeding Status: Acute Comment Review of Relevant I have reviewed the following items damian (where applicable) has been applied. Medications: Current Medications Medications (Trade) Dose Ordered Sig/Anais Route PRN Reason Start Time Stop Time Status Last Admin Dose Admin Lactobacillus Rhamnosus (Culturelle) 1 cap BID PO 03/22/21 09:00 03/22/21 09:02 Justifications for Admission Other Justification Acute colitis NIRANJAN GOLDMAN MD Mar 22, 2021 11:34
--- NOTE | 2021-03-22 14:32 | PDOC ---
Date of Service: DATE: 03/22/21 TIME: 14:31 Subjective: Subjective: Hgb 13.8. Per patient, no new bloody BMs today Objective: Vital Signs: Vital Signs Date Time Temp Pulse Resp B/P (MAP) Pulse Ox O2 Delivery O2 Flow Rate FiO2 03/22/21 11:34 98 Nasal Cannula 2.0 03/22/21 11:14 98.3 87 22 138/74 (95) 98.3 Labs: Laboratory Tests Test 03/22/21 06:00 White Blood Count 10.1 x10^3/uL (4.0-11.0) Red Blood Count 4.23 x10^6/uL (3.50-5.40) Hemoglobin 13.8 g/dL (12.0-15.5) Hematocrit 40.2 % (36.0-47.0) Mean Corpuscular Volume 95 fL (79-100) Mean Corpuscular Hemoglobin 33 pg (25-35) Mean Corpuscular Hemoglobin Concent 34 g/dL (31-37) Red Cell Distribution Width 12.7 % (11.5-14.5) Platelet Count 235 x10^3/uL (140-400) Neutrophils (%) (Auto) 76 % (31-73) Lymphocytes (%) (Auto) 16 % (24-48) Monocytes (%) (Auto) 6 % (0-9) Eosinophils (%) (Auto) 1 % (0-3) Basophils (%) (Auto) 1 % (0-3) Neutrophils # (Auto) 7.7 x10^3/uL (1.8-7.7) Lymphocytes # (Auto) 1.7 x10^3/uL (1.0-4.8) Monocytes # (Auto) 0.6 x10^3/uL (0.0-1.1) Eosinophils # (Auto) 0.1 x10^3/uL (0.0-0.7) Basophils # (Auto) 0.1 x10^3/uL (0.0-0.2) Sodium Level 143 mmol/L (136-145) Potassium Level 3.8 mmol/L (3.5-5.1) Chloride Level 108 mmol/L (98-107) Carbon Dioxide Level 26 mmol/L (21-32) Anion Gap 9 (6-14) Blood Urea Nitrogen 5 mg/dL (7-20) Creatinine 0.8 mg/dL (0.6-1.0) Estimated GFR (Cockcroft-Gault) 71.3 Glucose Level 98 mg/dL (70-99) Calcium Level 10.1 mg/dL (8.5-10.1) Magnesium Level 1.8 mg/dL (1.8-2.4) Physical Exam: Physical Exam: ABD: BS+, soft, non-distended, mild lower abdominal discomfort EXTREMITY: RUE tremor SKIN: No rashes, no jaundice NEURO/PSYCH: A & O 3 Assessment & Plan: Assessment : Lower abd cramping, vomiting, diarrhea/hematochezia - similar symptoms in past. Pain resolved Leukocytosis, hypercalcemia GERD - controlled w/ PPI QD CRC screen - UTD (10/2020) H/o constipation - controlled w/ stool softener, fiber, and MoM PRN Diverticulosis, hemorrhoids ASA use COVID negative ?ischemic colitis Hypertensive in ER w/ normal Hgb and BUN. Started on atbx. Plan: Cont Abx prn nausea eds Justicifation of Admission Dx: Justifications for Admission: Justification of Admission Dx: N/A INOCENCIA PHILLIPS MD Mar 22, 2021 14:32
[2021-03-22 15:00] VITALS: BP 161/82
[2021-03-22] MEDS: CEFEPIME HCL IV Push 1 GM VIAL. IVP SCH (16:32)
[2021-03-22] MEDS: oxyCODONE/APAP 5/325 1 TAB TABLET PO PRN (16:41)
[2021-03-22 19:00] VITALS: BP 146/71
[2021-03-22 23:00] VITALS: BP 171/88
[2021-03-23] MEDS: IV NORMAL SALINE 1000ML BAG 1,000 ML IV SCH ×2 (01:21→10:00)
[2021-03-23 03:00] VITALS: BP 159/82
[2021-03-23 06:57] LABS: CREATININE 0.7 mg/dL (0.6-1.0); GFR 83.2; MAGNESIUM 1.9 mg/dL (1.8-2.4); POTASSIUM 3.5 mmol/L (3.5-5.1)
[2021-03-23 07:00] VITALS: BP 168/82
[2021-03-23 07:34] LABS: BASO % 1 % (0-3); EOS # 0.2 x10^3/uL (0.0-0.7); EOS % 2 % (0-3); HEMATOCRIT 38.5 % (36.0-47.0); HEMOGLOBIN 13.1 g/dL (12.0-15.5); LYMPH # 1.5 x10^3/uL (1.0-4.8); LYMPH % 17 % (24-48); MEAN CORPUSCULAR HEMOGLOBIN 32 pg (25-35); MEAN CORPUSCULAR HGB CONC 34 g/dL (31-37); MEAN CORPUSCULAR VOLUME 95 fL (79-100); MONO # 0.7 x10^3/uL (0.0-1.1); MONO % 8 % (0-9); NEUT # 6.6 x10^3/uL (1.8-7.7); NEUT % 73 % (31-73); PLATELET COUNT 240 x10^3/uL (140-400); RED BLOOD COUNT 4.04 x10^6/uL (3.50-5.40); RED CELL DISTRIBUTION WIDTH 12.7 % (11.5-14.5)
[2021-03-23] MEDS: PANTOPRAZOLE 40 MG TABLET.DR. PO SCH (07:48)
[2021-03-23] MEDS: SUCRALFATE 1 GM TABLET. PO SCH ×2 (07:48→12:10)
[2021-03-23] MEDS: IPRATRPIUM/ALBUTEROL 0.5/2.5MG 3 ML NEBU. NEB SCH ×2 (07:50→11:40)
[2021-03-23] MEDS: BUDESONIDE 0.5 MG/2 ML NEBU. NEB SCH (07:50)
--- NOTE | 2021-03-23 09:58 | PDOC ---
Date of Service: DATE: 03/23/21 TIME: 09:54 Subjective: Subjective: Feels much better. No pain, no bleeding, tolerating diet. Has questions about how to treat chronic constipation - stool softeners + fiber don't work and a pill that her PCP prescribed didn't work and was also too expensive. Last week she told me stool softeners and fiber worked well. Objective: Vital Signs: Vital Signs Date Time Temp Pulse Resp B/P (MAP) Pulse Ox O2 Delivery O2 Flow Rate FiO2 03/23/21 07:51 93 Nasal Cannula 2.0 03/23/21 07:00 97.9 77 16 168/82 (110) 97.9 Labs: Laboratory Tests Test 03/23/21 06:05 White Blood Count 9.0 x10^3/uL Red Blood Count 4.04 x10^6/uL Hemoglobin 13.1 g/dL Hematocrit 38.5 % Mean Corpuscular Volume 95 fL Mean Corpuscular Hemoglobin 32 pg Mean Corpuscular Hemoglobin Concent 34 g/dL Red Cell Distribution Width 12.7 % Platelet Count 240 x10^3/uL Neutrophils (%) (Auto) 73 % Lymphocytes (%) (Auto) 17 % Monocytes (%) (Auto) 8 % Eosinophils (%) (Auto) 2 % Basophils (%) (Auto) 1 % Neutrophils # (Auto) 6.6 x10^3/uL Lymphocytes # (Auto) 1.5 x10^3/uL Monocytes # (Auto) 0.7 x10^3/uL Eosinophils # (Auto) 0.2 x10^3/uL Basophils # (Auto) 0.0 x10^3/uL Sodium Level 142 mmol/L Potassium Level 3.5 mmol/L Chloride Level 107 mmol/L Carbon Dioxide Level 28 mmol/L Anion Gap 7 Blood Urea Nitrogen 3 mg/dL Creatinine 0.7 mg/dL Estimated GFR (Cockcroft-Gault) 83.2 Glucose Level 108 mg/dL Calcium Level 10.0 mg/dL Magnesium Level 1.9 mg/dL PE: GEN: NAD LUNGS: clear, NC 2L HEART: RRR ABD: NABS, S/ND/NT NEURO/PSYCH: A & O 3 A/P: Lower abd cramping, vomiting, diarrhea/hematochezia - ?ischemic colitis? - symptoms resolved H/o GERD, constipation, diverticulosis, hemorrhoids ASA use - apparently not held -- DC per primary. Getting oxycodone and Sucralfate here - both can contribute to constipation. We discussed trial of Miralax - adjust dose as needed. Consider Amitiza, Linzess, Relistor, etc. Follow-up w/ GI PRN. Justicifation of Admission Dx: Justifications for Admission: Justification of Admission Dx: N/A IVON TOUSSAINT Mar 23, 2021 09:58
[2021-03-23] MEDS: CARBIDOPA/LEVODOPA 25/100MG TABLET PO SCH ×2 (10:06→13:06)
[2021-03-23] MEDS: LACTOBACILLUS RHAMNOSUS GG 1 CAPSULE. PO SCH (10:07)
[2021-03-23] MEDS: cloNIDine HCL 0.1 MG TABLET PO SCH (10:07)
[2021-03-23] MEDS: CHOLECALCIFEROL (VITAMIN D3) 1,000 UNIT TABLET PO SCH (10:07)
[2021-03-23] MEDS: ASPIRIN 325 MG TABLET PO SCH (10:08)
[2021-03-23] MEDS: LISINOPRIL 10 MG TABLET PO SCH (10:08)
--- NOTE | 2021-03-23 10:08 | NUR ---
SW following. Discussed with RN, pt from home alone, 2L (uses oxygen), GI soft, rapid COVID-19 negative. GI following. RN advised no SW needs at this time and anticipates possible discharge home today. SW will continue to follow.
[2021-03-23] MEDS: HEPARIN for SUB-Q USE 5,000 UNIT/ML VIAL. SQ SCH (10:15)
[2021-03-23 10:58] VITALS: BP 155/85
[2021-03-23] MEDS: POLYETHYLENE GLYCOL 3350 17 GM PACKET. PO SCH ×2 (12:00→13:06)
--- NOTE | 2021-03-23 13:43 | PDOC ---
[employer] PROGRESS NOTE Date of Service DOS: DATE: 03/23/21 TIME: 13:43 Chief Complaint Chief Complaint Acute abdominal pain due to colitis at the splenic flexure concerning for ischemic versus inflammatory ANATOLY due to vasomotor nephropathy Hypercalcemia Hx of diverticulitis ProtonixGI prophylaxis ADA diet Full code Discussed with RN and SW Disposition inpt management as above Surrogate decision maker is daughter History of Present Illness History of Present Illness 70 yo F with PMHx of GERD, COPD, DLD, HTN, who comes to the ED with ABD pain and rectal bleeding that started this morning when she was on the toilet. She has had a Hx of diverticulitis in the past and the pt states this is similar to her past episode. Denies fevers, N/V, chest pain, or dysuria. No syncope or lightheadedness. Pt has received COVID vaccine. No rectal pain. Has had a colonoscopy on 10/2020. 03/21/2021 No acute events overnight. Patient seen and examined bedside. Patient does endorse flatus but no bowel movement. She did have a bowel movement last night that was nonbloody. Will advance to clear liquid diet and as tolerated to soft GI. Awaiting for further GI recommendations before discharge. Would ultimately like the patient to having nonbloody bowel movement As well before discharge. Patient's chart, labs, images were reviewed and discussed with RN 03/22/2021 No acute events overnight. Patient seen and examined bedside. Will wait for nonbloody bowel movements. Trend hemoglobin patient's chart, labs, images were reviewed and discussed with RN No overnight event. No further bloody bowel movements. Pain is almost completely resolved. Has GI follow-up outpatient. Vitals/I&O Vitals/I&O: Vital Signs Date Time Temp Pulse Resp B/P (MAP) Pulse Ox O2 Delivery O2 Flow Rate FiO2 03/23/21 11:41 92 Nasal Cannula 2.0 03/23/21 10:58 98.5 82 20 155/85 (108) 98.5 I & O 03/22/21 03/22/21 03/23/21 15:00 23:00 07:00 Intake Total 420 ml 1299.33 ml 200 ml Output Total 200 ml Balance 420 ml 1099.33 ml 200 ml Physical Exam General: Alert, Oriented X3, Cooperative Heart: No murmurs Lungs: Clear Abdomen: Normal bowel sounds Extremities: No clubbing Skin: No rashes Labs Labs: Laboratory Tests Test 03/23/21 06:05 White Blood Count 9.0 x10^3/uL (4.0-11.0) Red Blood Count 4.04 x10^6/uL (3.50-5.40) Hemoglobin 13.1 g/dL (12.0-15.5) Hematocrit 38.5 % (36.0-47.0) Mean Corpuscular Volume 95 fL (79-100) Mean Corpuscular Hemoglobin 32 pg (25-35) Mean Corpuscular Hemoglobin Concent 34 g/dL (31-37) Red Cell Distribution Width 12.7 % (11.5-14.5) Platelet Count 240 x10^3/uL (140-400) Neutrophils (%) (Auto) 73 % (31-73) Lymphocytes (%) (Auto) 17 % (24-48) Monocytes (%) (Auto) 8 % (0-9) Eosinophils (%) (Auto) 2 % (0-3) Basophils (%) (Auto) 1 % (0-3) Neutrophils # (Auto) 6.6 x10^3/uL (1.8-7.7) Lymphocytes # (Auto) 1.5 x10^3/uL (1.0-4.8) Monocytes # (Auto) 0.7 x10^3/uL (0.0-1.1) Eosinophils # (Auto) 0.2 x10^3/uL (0.0-0.7) Basophils # (Auto) 0.0 x10^3/uL (0.0-0.2) Sodium Level 142 mmol/L (136-145) Potassium Level 3.5 mmol/L (3.5-5.1) Chloride Level 107 mmol/L (98-107) Carbon Dioxide Level 28 mmol/L (21-32) Anion Gap 7 (6-14) Blood Urea Nitrogen 3 mg/dL (7-20) Creatinine 0.7 mg/dL (0.6-1.0) Estimated GFR (Cockcroft-Gault) 83.2 Glucose Level 108 mg/dL (70-99) Calcium Level 10.0 mg/dL (8.5-10.1) Magnesium Level 1.9 mg/dL (1.8-2.4) Assessment and Plan Assessmemt and Plan Problems Medical Problems: (1) Colitis Status: Acute (2) Rectal bleeding Status: Acute Comment Review of Relevant I have reviewed the following items damian (where applicable) has been applied. Justifications for Admission Other Justification Acute colitis NILSA PICKARD MD Mar 23, 2021 13:43
[2021-03-23] MEDS ORDERED: POLY17PO52 PO (14:14)
[2021-03-23] MEDS ORDERED: LACT1CAP19 PO (14:14)
[2021-03-23] MEDS ORDERED: SUCR1TAB35 PO (14:14)
[2021-03-23] MEDS ORDERED: LISI10TA16 PO (14:14)
[2021-03-23] MEDS ORDERED: PANT40TA77 PO (14:14)
[2021-03-23] MEDS ORDERED: CHOL10004 PO (14:14)
[2021-03-23] MEDS ORDERED: AMOX1TAB58 PO (14:14)
[2021-03-23] MEDS ORDERED: CARB1TAB22 PO (14:14)
[2021-03-23] MEDS ORDERED: ASPI325T8 PO (14:14)
--- NOTE | 2021-03-23 14:17 | PDOC3 ---
Discharge Summary Visit Information Date of Admission: Mar 20, 2021 Date of Discharge: Mar 23, 2021 Admitting Diagnosis: Colitis Final Diagnosis Problems Medical Problems: (1) Colitis Status: Acute (2) Rectal bleeding Status: Acute Brief Hospital Course Allergies Allergies Coded Allergies Type Severity Reaction Last Updated Verified No Known Drug Allergies 11/07/20 No Vital Signs Vital Signs Date Time Temp Pulse Resp B/P (MAP) Pulse Ox O2 Delivery O2 Flow Rate FiO2 03/23/21 11:41 92 Nasal Cannula 2.0 03/23/21 10:58 98.5 82 20 155/85 (108) 98.5 Lab Results Laboratory Tests Test 03/22/21 06:00 03/23/21 06:05 White Blood Count 10.1 x10^3/uL (4.0-11.0) 9.0 x10^3/uL (4.0-11.0) Red Blood Count 4.23 x10^6/uL (3.50-5.40) 4.04 x10^6/uL (3.50-5.40) Hemoglobin 13.8 g/dL (12.0-15.5) 13.1 g/dL (12.0-15.5) Hematocrit 40.2 % (36.0-47.0) 38.5 % (36.0-47.0) Mean Corpuscular Volume 95 fL (79-100) 95 fL (79-100) Mean Corpuscular Hemoglobin 33 pg (25-35) 32 pg (25-35) Mean Corpuscular Hemoglobin Concent 34 g/dL (31-37) 34 g/dL (31-37) Red Cell Distribution Width 12.7 % (11.5-14.5) 12.7 % (11.5-14.5) Platelet Count 235 x10^3/uL (140-400) 240 x10^3/uL (140-400) Neutrophils (%) (Auto) 76 % (31-73) 73 % (31-73) Lymphocytes (%) (Auto) 16 % (24-48) 17 % (24-48) Monocytes (%) (Auto) 6 % (0-9) 8 % (0-9) Eosinophils (%) (Auto) 1 % (0-3) 2 % (0-3) Basophils (%) (Auto) 1 % (0-3) 1 % (0-3) Neutrophils # (Auto) 7.7 x10^3/uL (1.8-7.7) 6.6 x10^3/uL (1.8-7.7) Lymphocytes # (Auto) 1.7 x10^3/uL (1.0-4.8) 1.5 x10^3/uL (1.0-4.8) Monocytes # (Auto) 0.6 x10^3/uL (0.0-1.1) 0.7 x10^3/uL (0.0-1.1) Eosinophils # (Auto) 0.1 x10^3/uL (0.0-0.7) 0.2 x10^3/uL (0.0-0.7) Basophils # (Auto) 0.1 x10^3/uL (0.0-0.2) 0.0 x10^3/uL (0.0-0.2) Sodium Level 143 mmol/L (136-145) 142 mmol/L (136-145) Potassium Level 3.8 mmol/L (3.5-5.1) 3.5 mmol/L (3.5-5.1) Chloride Level 108 mmol/L (98-107) 107 mmol/L (98-107) Carbon Dioxide Level 26 mmol/L (21-32) 28 mmol/L (21-32) Anion Gap 9 (6-14) 7 (6-14) Blood Urea Nitrogen 5 mg/dL (7-20) 3 mg/dL (7-20) Creatinine 0.8 mg/dL (0.6-1.0) 0.7 mg/dL (0.6-1.0) Estimated GFR (Cockcroft-Gault) 71.3 83.2 Glucose Level 98 mg/dL (70-99) 108 mg/dL (70-99) Calcium Level 10.1 mg/dL (8.5-10.1) 10.0 mg/dL (8.5-10.1) Magnesium Level 1.8 mg/dL (1.8-2.4) 1.9 mg/dL (1.8-2.4) Laboratory Tests Test 03/23/21 06:05 White Blood Count 9.0 x10^3/uL (4.0-11.0) Red Blood Count 4.04 x10^6/uL (3.50-5.40) Hemoglobin 13.1 g/dL (12.0-15.5) Hematocrit 38.5 % (36.0-47.0) Mean Corpuscular Volume 95 fL (79-100) Mean Corpuscular Hemoglobin 32 pg (25-35) Mean Corpuscular Hemoglobin Concent 34 g/dL (31-37) Red Cell Distribution Width 12.7 % (11.5-14.5) Platelet Count 240 x10^3/uL (140-400) Neutrophils (%) (Auto) 73 % (31-73) Lymphocytes (%) (Auto) 17 % (24-48) Monocytes (%) (Auto) 8 % (0-9) Eosinophils (%) (Auto) 2 % (0-3) Basophils (%) (Auto) 1 % (0-3) Neutrophils # (Auto) 6.6 x10^3/uL (1.8-7.7) Lymphocytes # (Auto) 1.5 x10^3/uL (1.0-4.8) Monocytes # (Auto) 0.7 x10^3/uL (0.0-1.1) Eosinophils # (Auto) 0.2 x10^3/uL (0.0-0.7) Basophils # (Auto) 0.0 x10^3/uL (0.0-0.2) Sodium Level 142 mmol/L (136-145) Potassium Level 3.5 mmol/L (3.5-5.1) Chloride Level 107 mmol/L (98-107) Carbon Dioxide Level 28 mmol/L (21-32) Anion Gap 7 (6-14) Blood Urea Nitrogen 3 mg/dL (7-20) Creatinine 0.7 mg/dL (0.6-1.0) Estimated GFR (Cockcroft-Gault) 83.2 Glucose Level 108 mg/dL (70-99) Calcium Level 10.0 mg/dL (8.5-10.1) Magnesium Level 1.9 mg/dL (1.8-2.4) Brief Hospital Course 70 yo F with PMHx of GERD, COPD, DLD, HTN, who comes to the ED with ABD pain and rectal bleeding that started this morning when she was on the toilet. She has had a Hx of diverticulitis in the past and the pt states this is similar to her past episode. Denies fevers, N/V, chest pain, or dysuria. No syncope or lightheadedness. Pt has received COVID vaccine. No rectal pain. Has had a colonoscopy on 10/2020. 03/21/2021 No acute events overnight. Patient seen and examined bedside. Patient does endorse flatus but no bowel movement. She did have a bowel movement last night that was nonbloody. Will advance to clear liquid diet and as tolerated to soft GI. Awaiting for further GI recommendations before discharge. Would ultimately like the patient to having nonbloody bowel movement As well before discharge. Patient's chart, labs, images were reviewed and discussed with RN 03/22/2021 No acute events overnight. Patient seen and examined bedside. Will wait for nonbloody bowel movements. Trend hemoglobin patient's chart, labs, images were reviewed and discussed with RN No overnight event. No further bloody bowel movements. Pain is almost completely resolved. Has GI follow-up outpatient. Go home on 5 days of Augmentin and lactobacillus. Has home O2 already set up notes no home needs. Will take as needed MiraLAX and psyllium as needed for constipation at home. Consults: GI Problem list: Acute abdominal pain due to colitis at the splenic flexure concerning for ischemic versus inflammatory ANATOLY due to vasomotor nephropathy Hypercalcemia Hx of diverticulitis ProtonixGI prophylaxis ADA diet Full code Discussed with RN and SW Disposition inpt management as above Surrogate decision maker is daughter Greater than 30 minutes spent on d/c home with self care Discharge Information Condition at Discharge: Improved Follow Up: Weeks (1) Disposition/Orders: D/C to Home Scheduled Amoxicillin/Potassium Clav (Augmentin 500-125 Tablet) 1 Each Tablet, 1 TAB PO BID for Colitis for 5 Days, #10 Ref 0 Prescribed by: NILSA PICKARD MD on 03/23/21 1414 Aspirin (Aspirin) 325 Mg Tablet, 325 MG PO DAILYWBKFT for CAD for 30 Days, #30 Prescribed by: NILSA PICKARD MD on 03/23/21 1414 Carbidopa/Levodopa (Carbidopa-Levodopa 25-100 Tab) 1 Each Tablet, 1 TAB PO TID for Tremors for 30 Days, #90 Prescribed by: NILSA PICKARD MD on 03/23/21 1414 Cholecalciferol (Vitamin D3) (Vitamin D3 ) 25 Mcg Tablet, 1,000 UNIT PO DAILY for vit d insufficiency for 30 Days, #30 Prescribed by: NILSA PICKARD MD on 03/23/21 1414 Clonidine Hcl (Clonidine Hcl) 0.1 Mg Tablet, 0.1 MG PO DAILY, (Reported) Entered as Reported by: VALENTINA JUAN on 10/31/141100 Last Action: Reviewed on 03/20/21 155 by LEI CASILLAS LPN Lactobacillus Rhamnosus Gg (Culturelle) 1 Each Cap.sprink, 1 CAP PO BID for Colitis for 5 Days, #10 Prescribed by: NILSA PICKARD MD on 03/23/21 141 Latanoprost (Latanoprost) 2.5 Ml Drops, 1 DROP OP HS, (Reported) Entered as Reported by: VALENTINA JUAN on 10/31/141100 Last Action: Reviewed on 03/20/211555 by LEI CASILLAS LPN Lisinopril (Lisinopril) 10 Mg Tablet, 10 MG PO DAILY for HTN for 30 Days, #30 Prescribed by: NILSA PICKARD MD on 03/23/21 1414 Pantoprazole Sodium (Pantoprazole Sodium ) 40 Mg Tablet.dr, 40 MG PO DAILYAC for GERD for 30 Days, #30 Prescribed by: NILSA PICKARD MD on 03/23/21 1414 Sucralfate (Carafate) 1 Gm Tablet, 1 GM PO QIDACHS for GERD for 30 Days, #120 Prescribed by: NILSA PICKARD MD on 03/23/21 1414 Scheduled PRN Polyethylene Glycol 3350 (Polyethylene Glycol 3350) 17 Gm Powd.pack, 17 GM PO PRN DAILY PRN for CONSTIPATION for 30 Days, #30 Ref 11 Prescribed by: NILSA PICKARD MD on 03/23/21 141 Miscellaneous Medications Albuterol Sulfate (Albuterol Sulfate Conc Neb Soln) 2.5 Mg/0.5 Ml Vial.neb, 2.5 MG NEB for FOR ASTHMA, Ref 0 (Reported) Entered as Reported by: VALENTINA JUAN on 10/31/141100 Last Action: Reviewed on 03/20/211555 by LEI CASILLAS LPN Discontinued Medications Cholecalciferol (Vitamin D3) (D3-50) 50,000 Unit Capsule, 50,000 UNIT PO, (Reported) Entered as Reported by: VALENTINA JUAN on 10/31/141100 Last Action: Discontinued on 03/20/211555 by LEI CASILLAS LPN Docusate Sodium (Colace) 100 Mg Capsule, 1 CAP PO BID, #60 (Reported) Entered as Reported by: ERIC GRADY on 09/10/151102 Last Action: Discontinued on 03/20/211555 by LEI CASILLAS LPN Lisinopril (Lisinopril) 5 Mg Tablet, 5 MG PO DAILY for FOR HYPERTENSION, #30 Ref 0 (Reported) Entered as Reported by: VALENTINA JUAN on 10/31/141100 Last Action: Discontinued on 03/20/211555 by LEI CASLILAS LPN Meclizine Hcl (Meclizine Hcl) 25 Mg Tablet, 25 MG PO, (Reported) Entered as Reported by: VALENTINA JUAN on 10/31/141100 Last Action: Discontinued on 03/20/211555 by LEI CASILLAS LPN Naproxen (Naproxen) 500 Mg Tablet, 1 TAB PO BID, #40 Ref 1 (Reported) Entered as Reported by: ERIC GRADY on 09/10/151102 Last Action: Discontinued on 03/20/211555 by LEI CASILLAS LPN Omeprazole (Omeprazole) 40 Mg Capsule.dr, 40 MG PO DAILY, (Reported) Entered as Reported by: VALENTINA JUAN on 10/31/141100 Last Action: Discontinued on 03/20/211555 by LEI CASILLAS LPN Simvastatin (Simvastatin) 10 Mg Tablet, 10 MG PO HS for FOR CHOLESTEROL, #30 Ref 0 (Reported) Entered as Reported by: VALENTINA JUAN on 10/31/141100 Last Action: Discontinued on 03/20/211555 by LEI CASILLAS LPN Justicifation of Admission Dx: Justifications for Admission: Justification of Admission Dx: N/A NILSA PICKARD MD Mar 23, 2021 14:17
--- NOTE | 2021-03-23 15:45 | NUR ---
reviewed discharge instructions. she can see her doctors as needed. she was given a scripts for antibiotic and huber lax. saline lock removed. all questions answered.
== END 2021-03-23 16:00 | disposition home or self-care (01) | DRG 377 ==
LOC: ER 06:25 → ED HOLD 10:12 → 4 NORTH 11:24
PROVIDERS: ADMIT Internal Medicine; ATTEND Internal Medicine
DX: K57.91 Diverticulosis of intestine, part unspecified, without perforation or abscess with bleeding (principal); N17.0 Acute kidney failure with tubular necrosis; K55.9 Vascular disorder of intestine, unspecified; F41.9 Anxiety disorder, unspecified; K52.9 Noninfective gastroenteritis and colitis, unspecified; E78.00 Pure hypercholesterolemia, unspecified; Z90.710 Acquired absence of both cervix and uterus; E78.5 Hyperlipidemia, unspecified; E83.52 Hypercalcemia; F32.9 Major depressive disorder, single episode, unspecified; G20 Parkinson's disease; I10 Essential (primary) hypertension; J44.9 Chronic obstructive pulmonary disease, unspecified; K21.9 Gastro-esophageal reflux disease without esophagitis; K59.00 Constipation, unspecified; K64.8 Other hemorrhoids; Z20.822 Contact with and (suspected) exposure to COVID-19; Z87.891 Personal history of nicotine dependence
CPT/HCPCS: 36415; 74176; 80048; 80053; 82274; 82310; 83605; 83735; 84100; 85025; 85610; 85730; 87426; 87493; 87505; 94640; 94760; 96361; 96365; 96375; 96376; J0692; J1644; J2270; J2405; J2543; J3490; J7030; 99285-25; G0378; J7626